=== PATIENT | female | born 1950 | race Caucasian/White ===

== ENCOUNTER 2025-06-27 13:09 | Outpatient (CLI) | payer MEDICARE, SELFPAY | END 2025-06-27 13:10 | disposition home or self-care (01) | LOC: RT 13:14 | PROVIDERS: PCP Nurse Practitioner Family; Visit Provider Nurse Practitioner Family | DX: R06.02 Shortness of breath (principal) | CPT/HCPCS: 94060; 94726; 94729 ==

== ENCOUNTER 2025-08-02 06:40 | Inpatient (IN) | payer MEDICARE, SELFPAY ==
[2025-08-02] VITALS (10 sets, daily range): BP systolic 126–162; BP diastolic 62–102; PULSE 68–105; RESP 16–17; TEMP 36.5–36.8; O2SAT 98–100; BMI 38.4; BMI 40.0
--- NOTE | 2025-08-02 06:49 | XRR_ITS ---
PROCEDURE INFORMATION: Exam: XR Right Knee Exam date and time: 08/02/2025 7:02 AM Age: 75 years old Clinical indication: Injury or trauma; Fall; Blunt trauma; Knee; Right TECHNIQUE: Imaging protocol: Radiologic exam of the right knee. Views: 3 views. COMPARISON: No relevant prior studies available. FINDINGS: Bones/joints: No acute fracture or dislocation. Mild tricompartmental degenerative changes with joint space narrowing. Small joint effusion. Soft tissues: Mild diffuse subcutaneous soft tissue swelling. XR/XR knee RT 3V* [id number] IMPRESSION: 1. No definite acute osseous findings. 2. Small joint effusion. 3. Diffuse soft tissue swelling.
--- NOTE | 2025-08-02 07:00 | USCV_ITS ---
Joan Gold Age: 75 Gender: F : 1950 Exam Date: 08/02/2025 09:00 Ordering Phys: Bentley Wilkes DO Technologist: ANGELIQUE [place] [facility] [place]: venous ulcer HISTORY: Ulcers. PROCEDURES: Venous duplex imaging was performed in bilateral lower extremities. The following venous structures were evaluated: common femoral vein, profunda vein, proximal portion of the greater saphenous vein, superficial femoral vein, and the popliteal vein. In addition, the posterior tibial and peroneal trunk were evaluated. FINDINGS: Normal 2-D Doppler and augmentation and compressibility throughout the lower extremity venous structures. Additional imaging through the proximal calf veins also reveals no thrombus. Limited evaluation of the greater saphenous vein is patent with no thrombus. CONCLUSIONS Technically difficult exam due to pt cooperation and mobility and body habitus No DVT seen. Dr. Zandra Ball DO (Electronically Signed) Final Date: 02 August 2025 10:57 S
--- NOTE | 2025-08-02 07:00 | XRR_ITS ---
PROCEDURE INFORMATION: Exam: XR Right Hip Exam date and time: 08/02/2025 7:21 AM Age: 75 years old Clinical indication: Injury or trauma; Fall; Blunt trauma (contusions or hematomas); Right; Hip TECHNIQUE: Imaging protocol: Radiologic exam of the right hip. Views: 1 view hip with pelvis when performed. COMPARISON: No relevant prior studies available. FINDINGS: Bones/joints: No acute fracture or dislocation. Soft tissues: Unremarkable. XR/XR hip RT 2-3V wo/w pel* [id number] IMPRESSION: No acute osseous findings.
--- NOTE | 2025-08-02 07:03 | XRR_ITS ---
PROCEDURE INFORMATION: Exam: XR Chest Exam date and time: 08/02/2025 7:19 AM Age: 75 years old Clinical indication: Dyspnea; Additional info: Dyspnea/hypoxia TECHNIQUE: Imaging protocol: Radiologic exam of the chest. Views: 1 view. COMPARISON: No relevant prior studies available. FINDINGS: Lungs: Mild central pulmonary vascular congestion without overt edema. No focal consolidation. Pleural spaces: Unremarkable. No pleural effusion. No pneumothorax. Heart/Mediastinum: Heart appears prominent, though accentuated by portable technique. Bones/joints: Unremarkable. XR/XR chest 1V portable [id number] IMPRESSION: Mild central pulmonary vascular congestion without overt edema.
--- NOTE | 2025-08-02 07:03 | ECG_ITS ---
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 Measurements Intervals [place] Rate: 88 P: 85 NM: 181 QRS: 101 QRSD: 139 T: 78 QT: 400 QTc: 486 Interpretive Statements SINUS RHYTHM WITH OCCASIONAL VENTRICULAR PREMATURE COMPLEXES RIGHT AXIS DEVIATION [QRS AXIS > 100] RIGHT BUNDLE BRANCH BLOCK [120+ ms QRS DURATION, UPRIGHT V1, 40+ ms S IN I/aVL/V4/V5/V6] ANTEROSEPTAL MYOCARDIAL INFARCTION , OF INDETERMINATE AGE [40+ ms Q WAVE IN V1-V4] No previous ECG available for comparison Electronically Signed On 08-02-2025 16:48:20 CDT by Shaji Elliott M.D. [id number]
[2025-08-02] MEDS: FUROsemide 10 mg/mL SDV 10mL 60 MG IVP (07:15)
--- NOTE | 2025-08-02 07:26 | W.ED.FALL ---
HPI - Fall General: Chief Complaint: Fall Stated Complaint: FALL- R KNEE PAIN Time Seen by Provider: 08/02/25 06:41 History of Present Illness: 75-year-old female presents emergency room after a fall at home she complaining of her initially right knee pain when I came to see her said she had a right hip pain. Initially according to the note of right knee pain however when I talked to her she says that she has right knee and right hip pain she has fallen 6 times in the last 3 days She has significant amount of swelling in her lower extremities with chronic venous stasis ulcers bilaterally affecting the right leg significantly more than the left there is redness erythema she denies any fever sweats or chills. She has been seeing wound care nurse she has significant amount of redness in her right lower leg which has been worsening. No chest pain or shortness of breath no history of DVT or PE she is not currently on any antibiotics. She does have a cat at home but states the cat has not been biting or scratching her legs. She has not had any orthopnea or PND has significant amount of swelling in her lower extremities some weeping of serous fluid from the wounds. She states the swelling in her legs is chronic. Per EMS she had O2 sat of 68% in the field however here on room air she is at 100% with no respiratory distress with respiratory rate of 16 Associated symptoms-after fall: Denies abdominal pain, chest pain or neck pain Related Data Home Medications ?Medication ?Instructions ?Recorded ?Confirmed cetirizine 10 mg tablet (All Day 10 mg PO DAILY PRN Itching 03/20/25 08/02/25 Allergy (cetirizine)) clonidine HCl 0.2 mg tablet 0.2 mg PO DAILY 03/20/25 08/02/25 epinephrine 0.3 mg/0.3 mL 0.3 mg IM Q10M PRN Allergic 03/20/25 08/02/25 injection, auto-injector Reaction metformin 500 mg tablet 500 mg PO BID 03/20/25 08/02/25 levothyroxine 150 mcg tablet 150 mcg PO DAILY 06/12/25 08/02/25 (Synthroid) clonidine HCl 0.2 mg tablet 0.2 mg PO DAILY 08/02/25 08/02/25 furosemide 40 mg tablet 40 mg PO DAILY 08/02/25 08/02/25 ibuprofen 200 mg tablet (Advil) 200 mg PO Q6H PRN Fever Or Pain 08/02/25 08/02/25 liothyronine 5 mcg tablet 5 mcg PO DAILY 08/02/25 08/02/25 nitrofurantoin 100 mg PO BID 08/02/25 08/02/25 monohydrate/macrocrystals 100 mg capsule spironolactone 25 mg tablet 25 mg PO DAILY 08/02/25 08/02/25 vitamin D3 1,250 mcg (50,000 1 cap PO DAILY 08/02/25 08/02/25 unit)-vitamin K2 200 mcg capsule Previous Rx's ?Medication ?Instructions ?Recorded bupropion HCl 300 mg 24 hr tablet, 300 mg PO QAM #30 tabs 06/12/25 extended release (Wellbutrin XL) risperidone 1 mg tablet 1 mg PO BID #60 tabs 07/24/25 Allergies Allergy/AdvReac Type Severity Reaction Status Date / Time Alpha-Gal Allergy Intermediate ALGY-Hives Verified 06/12/25 15:44 (Dhbyzbqcg-Udttf-2,3-Gala Penicillins Allergy Intermediate ALGY-Hives Verified 06/12/25 15:44 niacin Allergy Unknown Unknown Verified 08/02/25 08:40 clarithromycin Allergy ADR-Vomitin Verified 08/02/25 08:40 g codeine Allergy palpitation Verified 08/02/25 08:40 s escitalopram (From Lexapro) Allergy uticaria Verified 08/02/25 08:40 minocycline Allergy Unknown Verified 08/02/25 08:40 ondansetron (From Zofran) Allergy constipatio Verified 08/02/25 08:40 n simvastatin Allergy palpitation Verified 08/02/25 08:40 s Review of Systems Const: Denies: fever(s) or chills Card: Reports: swelling of feet/ankles and dyspnea on exertion; Denies: chest pain or orthopnea Resp: Denies: dyspnea GI: Denies: abdominal pain : Denies: dysuria, urinary frequency or urinary urgency Musc: Reports: joint pain; Denies: neck pain or back pain Skin/Breast: Reports: erythema, skin tenderness and skin swelling PFSH ED PFSH: Medical History Hypothyroidism DM type 2 (diabetes mellitus, type 2) HTN (hypertension) Psychiatric care Social History Smoking and tobacco/nicotine status: never used tobacco/nicotine Alcohol intake: never Substance/Drug Use: never Household members: other Details: Granddaughter Physical Exam Const: GENERAL APPEARANCE: cooperative ORIENTATION/CONSCIOUSNESS: Yes awake, Yes oriented to person, Yes oriented to place and Yes oriented to time HENMT: COMMON NORMALS: normocephalic, atraumatic and hearing grossly normal bilaterally HEAD & SCALP: normocephalic and atraumatic Resp: COMMON NORMALS: normal respiratory effort, No retractions, No use of accessory muscles and clear to auscultation bilaterally AUSCULTATION: clear to auscultation bilaterally Cardio: COMMON NORMALS: regular rate, regular rhythm and No murmurs present (Cardio) RATE: regular rate RHYTHM: regular rhythm GI: COMMON NORMALS: Soft to palpation and No hepatosplenomegaly present AUSCULTATION: Yes normoactive bowel sounds PALPATION: Yes Soft to palpation, No Tenderness to palpation present (GI), No Guarding due to palpation present (GI) and Yes No hepatosplenomegaly present Extremity: COMMON NORMALS: normal to inspection, capillary refill normal, no clubbing, cyanosis or edema, no calf tenderness and no pedal edema Neuro: SENSORIUM/ORIENTATION: Yes oriented to person, Yes oriented to place and Yes oriented to time Skin: OTHER: Redness induration and erythema of the right lower leg proximal third of the calf extending distally with large open wound with serous drainage on the lateral distal lower leg. Multiple open isolated wounds on the right lower leg with localized erythema. 3+ edema bilaterally of the lower extremities Course Vital Signs: Vital signs: Vital Signs Temperature 98.3 F 08/02/25 06:42 Pulse Rate 82 08/02/25 09:14 Respiratory Rate 16 08/02/25 09:14 Blood Pressure 142/102 08/02/25 09:14 Pulse Oximetry 98 08/02/25 09:14 Oxygen Delivery Me thod Room Air 08/02/25 09:14 MDM - Fall Medical Decision Making Patient initially presents with significant swelling redness tenderness in her lower extremities complaining of right knee and right hip pain. Differential diagnosis includes knee fracture hip fracture DVT cellulitis congestive heart failure. CBC CMP BNP blood cultures lactic acid EKG venous duplex lower extremity chest x-ray ordered for initial evaluation Admitted for mild congestive heart failure with decompensation as well as cellulitis right lower extremity and wound management. Patient will be started on ceftriaxone and vancomycin. She also had a month a cystitis. No previous cultures from wound clinic or previous admission. She is not requiring oxygen at this time. She been given Lasix cultures have been done and initial antibiotics ordered. Discussed with Dr. John. Medical Records I reviewed the patient's medical records. Lab Data I reviewed the patient's lab results. 08/02/25 07:20 08/02/25 07:20 Radiology Impressions Knee X-Ray 08/02/25 06:49 IMPRESSION: 1. No definite acute osseous findings. 2. Small joint effusion. 3. Diffuse soft tissue swelling. Hip/Pelvis X-Ray 08/02/25 07:00 IMPRESSION: No acute osseous findings. Chest X-Ray 08/02/25 07:03 IMPRESSION: Mild central pulmonary vascular congestion without overt edema. Laboratory Results WBC 9.90 10^3/uL (3.29-11.43) 08/02/25 07:20 RBC 4.49 10^6/uL (3.85-5.65) 08/02/25 07:20 Hgb 13.00 g/dL (11.27-16.99) 08/02/25 07:20 Hct 40.1 % (36-47) 08/02/25 07:20 MCV 89.3 fl (85-98) 08/02/25 07:20 MCH 29.0 pg (27-33) 08/02/25 07:20 MCHC 32.4 g/dL (30-55) 08/02/25 07:20 RDW 14.7 % (12.1-15.1) 08/02/25 07:20 Plt Count 323 10^3/cmm (157-399) 08/02/25 07:20 MPV 9.0 fL (7.4-10.4) 08/02/25 07:20 Neut % (Auto) 77.8 % 08/02/25 07:20 Lymph % (Auto) 11.4 % 08/02/25 07:20 Coffey % (Auto) 9.7 % 08/02/25 07:20 Eos % (Auto) 0.0 % 08/02/25 07:20 Baso % (Auto) 0.5 % 08/02/25 07:20 Neut # (Auto) 7.70 10^3/uL (1.8-7.7) 08/02/25 07:20 Lymph # (Auto) 1.1 10^3/uL (0.8-4.8) 08/02/25 07:20 Coffey # (Auto) 1.0 10^3/uL (0.2-0.9) H 08/02/25 07:20 Eos # (Auto) 0.0 10^3/uL (0.0-0.8) 08/02/25 07:20 Baso # (Auto) 0.1 10^3/uL (0.0-0.1) 08/02/25 07:20 Nucleated RBC % (auto) 0 % 08/02/25 07:20 Nucleated RBCs # 0.0 /100WBC 08/02/25 07:20 Sodium 136 mmol/L (136-145) 08/02/25 07:20 Potassium 3.9 mmol/L (3.5-5.1) 08/02/25 07:20 Chloride 100 mmol/L (98-107) 08/02/25 07:20 Carbon Dioxide 22 mmol/L (22-29) 08/02/25 07:20 Anion Gap 17.9 (5-19) 08/02/25 07:20 BUN 13 mg/dL (8-23) 08/02/25 07:20 Creatinine 1.1 mg/dL (0.5-0.9) H 08/02/25 07:20 GFR Calculation Not Reportable 08/02/25 07:20 Glucose 153 mg/dL (65-115) H 08/02/25 07:20 Calculated Osmolality 285 mOsm/kg (285-295) 08/02/25 07:20 Lactic Acid 2.0 mmol/L (0.5-2.2) 08/02/25 07:20 Calcium 8.8 mg/dL (8.5-10.5) 08/02/25 07:20 Total Bilirubin 0.4 mg/dL (0.15-1.2) 08/02/25 07:20 AST 34 U/L (0-32) H 08/02/25 07:20 ALT 30 U/L (0-33) 08/02/25 07:20 Alkaline Phosphatase 81 U/L (35-105) 08/02/25 07:20 NT-Pro-B Natriuret Pep 2061 pg/mL (0-450) H 08/02/25 07:20 Total Protein 7.5 g/dL (6.6-8.7) 08/02/25 07:20 Albumin 3.5 g/dL (3.5-5.2) 08/02/25 07:20 Globulin 4.0 g/dL (1.3-4.6) 08/02/25 07:20 Urine Color Yellow (Yellow) 08/02/25 08:09 Urine Appearance Clear (CLEAR) 08/02/25 08:09 Urine pH 6.0 (5-7) 08/02/25 08:09 Ur Specific [place]ley 1.010 (1.005-1.030) 08/02/25 08:09 Urine Protein Negative (Negative) 08/02/25 08:09 Urine Glucose (UA) Negative (Normal) 08/02/25 08:09 Urine Ketones Negative (Negative) 08/02/25 08:09 Urine Blood Negative (Negative) 08/02/25 08:09 Urine Nitrate Negative (Negative) 08/02/25 08:09 Urine Bilirubin Negative (Negative) 08/02/25 08:09 Urine Urobilinogen 1.0 mg/dL (Negative) 08/02/25 08:09 Ur Leukocyte Esterase 1+ (Negative) A 08/02/25 08:09 Urine RBC 0-2 /hpf (0-2) 08/02/25 08:09 Urine WBC 11-20 /hpf (0-5) H 08/02/25 08:09 Ur Squamous Epith Cells 0-5 /hpf (0-5) 08/02/25 08:09 Amorphous Sediment Not Reportable 08/02/25 08:09 Urine Bacteria 3+ /hpf (NONE) H 08/02/25 08:09 Hyaline Casts 3.71 /lpf 08/02/25 08:09 All radiology interpretation(s) finalized by discharge EKG Data EKG 1: I personally reviewed and interpreted this EKG as follows: EKG interpretation date: 08/02/25 Prior EKG tracings: not available for review Interpretation: EKG 1015 2024 6:46 AM sinus rhythm rate of 88 ID normal 181 QTc 446 right bundle branch block no acute ST elevation. No EKG for comparison. EKG 2: I personally reviewed and interpreted this EKG as follows: EKG interpretation date: 08/02/25 Prior EKG tracings: available for review Interpretation: EKG 08/02/2025 7:52 AM sinus rhythm with occasional PVCs no acute ST changes noted. Right bundle branch block rate of 87 ID 173 QTc 536 compared to EKG done earlier same day no significant change Discharge Plan Discharge Patient Disposition: Placed in Observation Clinical Impression: CHF (congestive heart failure), Falls, Cellulitis, Wound of right lower extremity, Cystitis Coding Level of Care Code ED Laundry Sorter for Henry Valle
[2025-08-02 07:27] LABS: Hematocrit 40.1 % (36-47); Hemoglobin 13.00 g/dL (11.27-16.99); Mean Corpuscular HGB Conc 32.4 g/dL (30-55); Mean Corpuscular Hemoglobin 29.0 pg (27-33); Mean Corpuscular Volume 89.3 fl (85-98); Nucleated Red Blood Cells % 0 %; Platelet Count 323 10^3/cmm (157-399); Red Blood Count 4.49 10^6/uL (3.85-5.65); White Blood Count 9.90 10^3/uL (3.29-11.43)
[2025-08-02 07:46] LABS: Lactic Sepsis W/Reflex 2.0 mmol/L (0.5-2.2)
--- NOTE | 2025-08-02 07:55 | ECG_ITS ---
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 Measurements Intervals [place] Rate: 87 P: 74 OR: 173 QRS: 98 QRSD: 154 T: 65 QT: 443 QTc: 536 Interpretive Statements SINUS RHYTHM WITH OCCASIONAL VENTRICULAR PREMATURE COMPLEXES RIGHT BUNDLE BRANCH BLOCK [120+ ms QRS DURATION, UPRIGHT V1, 40+ ms S IN I/aVL/V4/V5/V6] Compared to ECG 08/02/2025 06:46:01 Right-axis deviation no longer present Myocardial infarct finding no longer present Electronically Signed On 08-02-2025 16:48:14 CDT by Shaji Elliott M.D. [email or web address] [id number]
[2025-08-02 07:56] LABS: Alanine Aminotransferase 30 U/L (0-33); Albumin Level 3.5 g/dL (3.5-5.2); Alkaline Phosphatase 81 U/L (35-105); Anion Gap 17.9 (5-19); Aspartate Amino Transferase 34 U/L (0-32); Blood Urea Nitrogen 13 mg/dL (8-23); Calcium 8.8 mg/dL (8.5-10.5); Carbon Dioxide 22 mmol/L (22-29); Chloride 100 mmol/L (98-107); Creatinine Clr Calc Pharmacy 46.8181; Globulin 4.0 g/dL (1.3-4.6); Glucose 153 mg/dL (65-115); NT Pro B Type Natriuretic Pept 2061 pg/mL (0-450); Osmolality Calculated 285 mOsm/kg (285-295); Potassium 3.9 mmol/L (3.5-5.1); Sodium 136 mmol/L (136-145); Total Protein 7.5 g/dL (6.6-8.7)
[2025-08-02 08:16] LABS: Glucose Urine UA Negative (Normal); Nitrate Urine Negative (Negative); Specific Gravity, Urine 1.010 (1.005-1.030)
[2025-08-02 08:19] LABS: Add Urine Microscopic? YES
--- NOTE | 2025-08-02 10:34 | PM.HP ---
Providers/Chief Complaint Primary Care Provider: KP Alvarado Chief Complaint: FALL- R KNEE PAIN History of Present Illness Joan Gold is a 75 year old woman with a history of chronic right lower extremity wound, lymphedema, hypertension, and type 2 diabetes mellitus presenting with right knee pain and increased frequency of falls (reported six times in five days). Reports chronic bilateral lower extremity swelling with weeping from the chronic right lower leg wound. Describes episodes of sliding off the bed and falling, with resultant hip discomfort; denies chest pain, fever, chills, cough, nausea, vomiting, diarrhea, melena, or hematochezia. Endorses shortness of breath with exertion; sleeps on her side with head elevated. Lives with her granddaughter. Drinks water and soda daily (estimated ~32 ounces water plus additional fluids); previously on diuretics and believes she may still be taking furosemide (Lasix). Elevates legs at night and has an electric recliner; tries to keep legs elevated during the day. ER visit prompted by frequent falls; EMS reportedly measured oxygen saturation ~68%, which was 98% on room air in the ED. Review of Systems Const: Denies: fever(s), chills, body aches or malaise ENMT: Denies: throat pain Card: Reports: edema; Denies: chest pain, pre-syncope or dyspnea on exertion Resp: Denies: dyspnea, productive cough, change in phlegm color or hemoptysis GI: Denies: abdominal pain, nausea, vomiting, diarrhea, constipation, hematochezia or melena : Denies: flank pain, urinary frequency or hematuria Musc: Reports: joint pain (R knee, R shoulder after falls) and other; Denies: back pain, joint swelling or joint redness Skin/Breast: Denies: rash or new lesions Neuro: Denies: headache(s) or confusion Medications/Allergies Home Medications ?Medication ?Instructions ?Recorded ?Confirmed ?Last Taken ?Type cetirizine 10 mg tablet (All Day 10 mg PO DAILY PRN Itching 03/20/25 08/02/25 08/01/25 History Allergy (cetirizine)) clonidine HCl 0.2 mg tablet 0.2 mg PO DAILY 03/20/25 08/02/25 08/01/25 History epinephrine 0.3 mg/0.3 mL 0.3 mg IM Q10M PRN Allergic 03/20/25 08/02/25 Unknown History injection, auto-injector Reaction metformin 500 mg tablet 500 mg PO BID 03/20/25 08/02/25 08/01/25 History bupropion HCl 300 mg 24 hr tablet, 300 mg PO QAM #30 tabs 06/12/25 08/02/25 08/01/25 Rx extended release (Wellbutrin XL) levothyroxine 150 mcg tablet 150 mcg PO DAILY 06/12/25 08/02/25 08/01/25 History (Synthroid) risperidone 1 mg tablet 1 mg PO BID #60 tabs 07/24/25 08/02/25 08/01/25 Rx clonidine HCl 0.2 mg tablet 0.2 mg PO DAILY 08/02/25 08/02/25 08/01/25 History furosemide 40 mg tablet 40 mg PO DAILY 08/02/25 08/02/25 08/01/25 History ibuprofen 200 mg tablet (Advil) 200 mg PO Q6H PRN Fever Or Pain 08/02/25 08/02/25 08/01/25 History liothyronine 5 mcg tablet 5 mcg PO DAILY 08/02/25 08/02/25 08/01/25 History nitrofurantoin 100 mg PO BID 08/02/25 08/02/25 08/01/25 History monohydrate/macrocrystals 100 mg capsule spironolactone 25 mg tablet 25 mg PO DAILY 08/02/25 08/02/25 08/01/25 History vitamin D3 1,250 mcg (50,000 1 cap PO DAILY 08/02/25 08/02/25 08/01/25 History unit)-vitamin K2 200 mcg capsule Allergies Allergy/AdvReac Type Severity Reaction Status Date / Time Alpha-Gal Allergy Intermediate ALGY-Hives Verified 06/12/25 15:44 (Svbickslo-Prqbx-4,3-Gala Penicillins Allergy Intermediate ALGY-Hives Verified 06/12/25 15:44 niacin Allergy Unknown Unknown Verified 08/02/25 08:40 clarithromycin Allergy ADR-Vomitin Verified 08/02/25 08:40 g codeine Allergy palpitation Verified 08/02/25 08:40 s escitalopram (From Lexapro) Allergy uticaria Verified 08/02/25 08:40 minocycline Allergy Unknown Verified 08/02/25 08:40 ondansetron (From Zofran) Allergy constipatio Verified 08/02/25 08:40 n simvastatin Allergy palpitation Verified 08/02/25 08:40 s PFSH Acute PFSH: Medical History Hypothyroidism DM type 2 (diabetes mellitus, type 2) HTN (hypertension) Psychiatric care Social History Smoking and tobacco/nicotine status: never used tobacco/nicotine Alcohol intake: never Substance/Drug Use: never Household members: other Details: Granddaughter Vitals/I&O/Wt Last Vital Signs Temp 98.3 F 08/02/25 06:42 Pulse 82 08/02/25 09:14 Resp 16 08/02/25 09:14 BP 142/102 08/02/25 09:14 Pulse Ox 98 08/02/25 09:14 O2 Del Method Room Air 08/02/25 09:14 Weight last 48 hrs Weight 95.254 kg Physical Exam Const: COMMON NORMALS: patient oriented x3 and alert GENERAL APPEARANCE: cooperative ORIENTATION/CONSCIOUSNESS: Yes awake HENMT: COMMON NORMALS: oropharynx normal Neck/C-Spine: COMMON NORMALS: no JVD Resp: COMMON NORMALS: normal respiratory effort and clear to auscultation bilaterally AUSCULTATION: clear to auscultation bilaterally Cardio: COMMON NORMALS: no JVD, regular rhythm, S1 normal heart sound present, S2 normal heart sound present and No murmurs present (Cardio) RHYTHM: regular rhythm HEART SOUNDS: S1 normal heart sound present and S2 normal heart sound present GI: COMMON NORMALS: Normal to inspection, nondistended, normoactive bowel sounds present, Soft to palpation and non-tender PALPATION: Yes Soft to palpation Extremity: GENERAL: Yes edema (3+, weeping) Neuro: COMMON NORMALS: patient oriented x3 and moves all extremities SENSORIUM/ORIENTATION: Yes alert Skin: NARRATIVE SKIN EXAM: Bilateral significant lower extremity edema, weeping, and number of smaller weeping ulcerations on anterior and lateral lower legs bilaterally. Larger wound of about 4 cm in diameter -a shallow ulceration without tunneling or undermining with weeping with larger inferior area of ecchymosis. Small amount of slough at the base of the shallow ulcer. Large area of erythema and induration of right lower extremity below the knee and extending to the dorsal right foot. Data 08/02/25 07:20 08/02/25 07:20 Micro: Microbiology 08/02/25 07:38 Blood Culture - Preliminary Blood SPECIMEN COLLECTED A&P Assessment and plan 1. CHF (congestive heart failure): Acute congestive heart failure, type unknown: Fluid overload with bilateral leg swelling and weeping; shortness of breath on exertion; chest radiograph shows mild pulmonary vascular congestion without overt edema; NT-proBNP 2060. No chest pain reported. Reviewed vitals, CBC, chemistry, NT proBNP, UA, chest x-ray, ED provider note, discussed with the provider. - Administered IV Lasix (furosemide) 60 mg in ED - Continue IV diuretics (Lasix), Monitor intake/output and electrolytes (risk of electrolyte abnormalities) - Advise reducing fluid intake (drink to thirst, avoid habitual extra fluids) - Order echocardiogram (ultrasound of the heart) to assess cardiac function Significant edema bilaterally. Some purplish discoloration of toes, worse on the left. Venous duplex has been requested and is being assessed for DVT. Obtain arterial duplex. 2. Cellulitis: Cellulitis of right lower extremity : Skin infection of right lower extremity with significant erythema surrounding a chronic wound in the setting of weeping edema; afebrile; no leukocytosis on complete blood count (CBC). Empiric MRSA coverage. Obtain wound culture. Initially ceftriaxone was ordered in ED, but penicillin allergy, did not receive ceftriaxone. Will request for ciprofloxacin. - Start/continue IV vancomycin - Keep legs elevated - Monitor for acute kidney injury (RITIKA) while on antibiotics/diuretics 3. Falls: Reported six falls in five days, including sliding off bed; hip pain noted after falls. - Hip/pelvis x-ray reviewed: no acute osseous findings - Encourage gradual activity and walking as tolerated - PT eval 4. Wound of right lower extremity: Chronic large wound on the posterolateral right lower leg with persistent weeping; follows with wound care. - Surgery consult requested to evaluate for possible debridement - Keep legs elevated 5. Cystitis: Empiric antibiotic coverage for possible UTI. Follow-up urine culture. Plan: Right knee pain : Initial complaint to ED; knee x-ray without definite acute osseous findings, small joint effusion, diffuse soft tissue swelling. - Knee x-ray obtained and reviewed (no acute osseous findings) Lymphedema : Chronic bilateral lower extremity swelling; contributes to weeping wound environment. - Advise leg elevation during the day and night - Diuretic therapy as above Type 2 diabetes mellitus : Known type 2 diabetes mellitus; patient believes sugars improved but confirms ongoing diabetes. Elevated glucose 153 on comprehensive metabolic panel (CMP) reviewed. - Advise monitoring and controlling blood sugars Hypertension : Known history of hypertension. Abnormal urinalysis : Urinalysis: 1+ leukocyte esterase, 11?20 WBCs, 3+ bacteria, hyaline casts noted; nitrite negative. Recent course of nitrofurantoin. Right bundle branch block : Electrocardiogram (EKG) shows right bundle branch block (RBBB) per initial interpretation (official read pending) on my interpretation, pending official read. Obtain TTE as above. Pulmonary vascular congestion on chest radiograph : Chest x-ray shows mild pulmonary vascular congestion without overt edema. - Manage with diuretics as above Elevated NT-proBNP : NT-proBNP 2061, consistent with volume overload/heart failure context. - Manage with diuretics and cardiac evaluation as above Advance care planning : Discussed code status; patient is agreeable to full resuscitative efforts (CPR, defibrillation, intubation) if needed. Identified daughter (and three children) as surrogate decision-makers if capacity changes. - Document full code status - Record daughter/children as surrogate contacts Surgical consultation : Emergency department requested surgical evaluation for possible debridement of chronic right lower leg wound. - Consult surgery for wound evaluation and potential debridement Alpha gal allergy. Follow-up : Admission/observation requested for acute congestive heart failure and right lower extremity cellulitis. - Admit to hospital/observation for management of acute CHF and cellulitis - Order bilateral leg ultrasound to assess for deep vein thrombosis (DVT) - Request arterial circulation studies of lower extremities PDMP PDMP Reviewed: Not Reviewed Attestations Medical Necessity Statement*: Place in observation for additional assessment management of acute CHF, cellulitis and wound of right lower extremity, cystitis, multiple falls recently and lady with underlying diabetes, additional comorbidities as above. and High MDM includes amount and/or complexity of data reviewed/ordered [ previous or external records, resulted lab(s)/test(s), ordered lab(s)/test(s), independent test interpretation and other healthcare professional discussion] and described risk of complication, morbidity or mortality of management as documented Diagnoses CHF (congestive heart failure) I50.9 Cellulitis L03.90 Falls R29.6 Wound of right lower extremity S81.801A Cystitis N30.90
[2025-08-02] MEDS: cefTRIAXone 2,000 mg SDV 2000 MG IVP (11:09)
--- NOTE | 2025-08-02 11:37 | XRR_ITS ---
PROCEDURE INFORMATION: Exam: XR Right Shoulder Exam date and time: 08/02/2025 11:49 AM Age: 75 years old Clinical indication: Injury or trauma; Fall; Blunt trauma (contusions or hematomas); Shoulder; Right; Additional info: Fall, pain TECHNIQUE: Imaging protocol: Radiologic exam of the right shoulder. Views: 2 or more views. COMPARISON: CR XR chest 1V portable [id number] 08/02/2025 7:19 AM FINDINGS: Bones/joints: Demineralization consistent with the patient's age. Aasl-kt-pejgyily degenerative changes glenohumeral joint with spurring of the glenoid. Moderate degenerative changes right AC joint. Some irregularity and sclerosis of the greater tuberosity consistent with degenerative changes. No acute appearing bony abnormality demonstrated. Soft tissues: Normal. XR/XR shoulder RT min 2V* [id number] IMPRESSION: Demineralization consistent with the patient's age. Degenerative changes..
--- NOTE | 2025-08-02 11:37 | USCV_ITS ---
Joan Gold Age: 75 Gender: F : 1950 Exam Date: 08/02/2025 14:38 Ordering Phys: Jason John MD Technologist: [place] [facility] [place]: SOB PEDAL EDEMA BP: 135 / 74 HR: 89 Rhythm: Sinus Technical Quality: MEASUREMENTS (Male / Female) Normal Values 2D ECHO LV Diastolic Diameter PLAX 4.4 cm 4.2 - 5.9 / 3.9 - 5.3 cm IVS Diastolic Thickness 1.2 cm 0.6 - 1.0 / 0.6 - 0.9 cm IVS Systolic Thickness 1.7 cm LVPW Diastolic Thickness 1.2 cm 0.6 - 1.0 / 0.6 - 0.9 cm LVPW Systolic Thickness 1.6 cm LVOT Diameter 2.1 cm LV Ejection Fraction 2D Teich 68.6 % LV Ejection Fraction MOD 4C 53.1 % LV Ejection Fraction MOD 2C 68.5 % LV Ejection Fraction 2C AL 68.7 % LA Diameter 2.6 cm RA Systolic Volume 4C AL 52.0 ml RA Systolic Volume 4C MOD 47.4 ml Aorta at Sinotubular Diameter 2.6 cm IVC Diameter 1.5 cm DOPPLER AV Peak Velocity 144.3 cm/s LVOT Peak Velocity 103.0 cm/s AV Area Cont Eq vti 3.3 cm squared AV Area Cont Eq pk 2.5 cm squared MV Peak Velocity 168.0 cm/s MV Area PHT 4.4 cm squared Mitral E to A Ratio 0.8 TV Peak Velocity 145.5 cm/s TR Peak Velocity 166.0 cm/s TR Peak Gradient 11.0 mmHg TV Peak E Velocity 61.0 cm/s PV Peak Velocity 104.0 cm/s FINDINGS Left Ventricle Normal left ventricular size and systolic function, EF 60-65%. No regional wall motion abnormalities. Grade 1 diastolic dysfunction. Right Ventricle Normal right ventricular size and systolic function. Right Atrium Normal right atrial size. Left Atrium Normal left atrial size. IA Septum Grossly normal Mitral Valve Structurally normal mitral valve. Trace mitral regurgitation. Aortic Valve Aortic valve is thickened. No significant stenosis. Tricuspid Valve Insufficient TR jet to calculate RVSP Pulmonic Valve Not well visualized Pericardium Normal Aorta Normal IVC Appears to be normal CONCLUSIONS LV systolic function is normal with EF of 60-65% Grade 1 diastolic dysfunction Trace mitral regurgitation No comparison studies are available. Shaji Elliott MD (Electronically Signed) Final Date: 04 August 2025 16:40 S
--- NOTE | 2025-08-02 11:37 | USR_ITS ---
PROCEDURE INFORMATION: Exam: US Duplex Right Lower Extremity Arteries Or Arterial Bypass Grafts Exam date and time: 08/02/2025 2:55 PM Age: 75 years old Clinical indication: Pain; Leg, lower; Right; Additional info: Assess arterial circulation TECHNIQUE: Imaging protocol: Right Real-time duplex scan of the arteries or arterial bypass grafts of the right lower extremity with 2-D richter scale, color Doppler flow and spectral waveform analysis. Images documented and saved. COMPARISON: [place] [id number] 08/02/2025 9:00 AM FINDINGS: Right common femoral artery: Plaque present Monophasic waveform. No occlusion or high-grade stenosis. Right superficial femoral artery: Plaque present. Monophasic waveform. No occlusion or high-grade stenosis. Normal waveform. Right popliteal artery: Plaque present. Monophasic waveform. No occlusion or high-grade stenosis. Right calf/foot arteries: Posterior tibial artery shows monophasic waveform and spectral broadening. No occlusion or high-grade stenosis. Dorsalis pedis artery shows monophasic waveform and spectral broadening. No occlusion or high-grade stenosis.. Soft tissues: No hematoma [place] collection. US/[place] [id number] IMPRESSION: No high-grade stenosis or occlusion.
--- NOTE | 2025-08-02 11:42 | PHA.VACGOAL ---
Vancomycin Goal - Goal Vancomycin Goal:: 10-15 mg/L Vancomycin Indication:: SSTI - Therapy Current therapy:: Other Antibiotic (CIPROFLOXACIN) Day of therpy:: Day []of [] . Actual body weight (kg): 210 lb - Data Labs: WBC 9.90 10^3/uL (3.29-11.43) 08/02/25 07:20 RBC 4.49 10^6/uL (3.85-5.65) 08/02/25 07:20 Hgb 13.00 g/dL (11.27-16.99) 08/02/25 07:20 Hct 40.1 % (36-47) 08/02/25 07:20 MCV 89.3 fl (85-98) 08/02/25 07:20 MCH 29.0 pg (27-33) 08/02/25 07:20 MCHC 32.4 g/dL (30-55) 08/02/25 07:20 RDW 14.7 % (12.1-15.1) 08/02/25 07:20 Sodium 136 mmol/L (136-145) 08/02/25 07:20 Potassium 3.9 mmol/L (3.5-5.1) 08/02/25 07:20 Chloride 100 mmol/L (98-107) 08/02/25 07:20 Carbon Dioxide 22 mmol/L (22-29) 08/02/25 07:20 Anion Gap 17.9 (5-19) 08/02/25 07:20 BUN 13 mg/dL (8-23) 08/02/25 07:20 Creatinine 1.1 mg/dL (0.5-0.9) H 08/02/25 07:20 GFR Calculation Not Reportable 08/02/25 07:20 Last dialysis session:: N/A Treatment plan:: new consult Regimen:: INITIAL LOADING DOSE OF 1000 MG X 1 GIVEN IN ER MAINTENANCE DOSE OF 750 MG Q12H PER DOSING PROTOCOL Follow up:: WILL CONTINUE TO MONITOR AND FOLLOW UP DAILY
--- NOTE | 2025-08-02 13:49 | PM.CONSULT ---
Providers/Reason For Consult Consulting Physician/Specialty*: general surgery Reason for Consult*: bilateral lower extremity ulcerations. Attending Physician: Jason John Primary Care Provider: KP Alvarado History of Present Illness History of Present Illness Joan Gold is a 75 year old female who was admitted to the hospital with heart failure, she has lymphedema bilateral lower extremity chronic venous stasis and ulcerations, I was consulted for evaluation for possible debridement of bilateral lower extremity ulcerations due to superimposed cellulitis. Patient states that she has had these wounds for years, she receives treatment in the wound care clinic by Dr. Mora. Endorses minimal supervision, she does wrap her legs on a daily basis to prevent edema. Review of Systems General: Reports: 10 or more systems reviewed and unremarkable except in HPI and below Medications/Allergies Home Medications ?Medication ?Instructions ?Recorded ?Confirmed ?Last Taken ?Type cetirizine 10 mg tablet (All Day 10 mg PO DAILY PRN Itching 03/20/25 08/02/25 08/01/25 History Allergy (cetirizine)) clonidine HCl 0.2 mg tablet 0.2 mg PO DAILY 03/20/25 08/02/25 08/01/25 History epinephrine 0.3 mg/0.3 mL 0.3 mg IM Q10M PRN Allergic 03/20/25 08/02/25 Unknown History injection, auto-injector Reaction metformin 500 mg tablet 500 mg PO BID 03/20/25 08/02/25 08/01/25 History bupropion HCl 300 mg 24 hr tablet, 300 mg PO QAM #30 tabs 06/12/25 08/02/25 08/01/25 Rx extended release (Wellbutrin XL) levothyroxine 150 mcg tablet 150 mcg PO DAILY 06/12/25 08/02/25 08/01/25 History (Synthroid) risperidone 1 mg tablet 1 mg PO BID #60 tabs 07/24/25 08/02/25 08/01/25 Rx clonidine HCl 0.2 mg tablet 0.2 mg PO DAILY 08/02/25 08/02/25 08/01/25 History furosemide 40 mg tablet 40 mg PO DAILY 08/02/25 08/02/25 08/01/25 History ibuprofen 200 mg tablet (Advil) 200 mg PO Q6H PRN Fever Or Pain 08/02/25 08/02/25 08/01/25 History liothyronine 5 mcg tablet 5 mcg PO DAILY 08/02/25 08/02/25 08/01/25 History nitrofurantoin 100 mg PO BID 08/02/25 08/02/25 08/01/25 History monohydrate/macrocrystals 100 mg capsule spironolactone 25 mg tablet 25 mg PO DAILY 08/02/25 08/02/25 08/01/25 History vitamin D3 1,250 mcg (50,000 1 cap PO DAILY 08/02/25 08/02/25 08/01/25 History unit)-vitamin K2 200 mcg capsule Allergies Allergy/AdvReac Type Severity Reaction Status Date / Time Alpha-Gal Allergy Intermediate ALGY-Hives Verified 06/12/25 15:44 (Zlhbxzcps-Mbcwr-4,3-Gala Penicillins Allergy Intermediate ALGY-Hives Verified 06/12/25 15:44 niacin Allergy Unknown Unknown Verified 08/02/25 08:40 clarithromycin Allergy ADR-Vomitin Verified 08/02/25 08:40 g codeine Allergy palpitation Verified 08/02/25 08:40 s escitalopram (From Lexapro) Allergy uticaria Verified 08/02/25 08:40 minocycline Allergy Unknown Verified 08/02/25 08:40 ondansetron (From Zofran) Allergy constipatio Verified 08/02/25 08:40 n simvastatin Allergy palpitation Verified 08/02/25 08:40 s Current Medications Generic Name Dose Route Start Last Admin Trade Name Freq PRN Reason Stop Dose Admin Fondaparinux 2.5 mg 08/02/25 11:37 08/02/25 13:13 Fondaparinux 2.5 Mg/0.5 Ml Syringe SUBCUT 2.5 mg DAILY MAYURI Administration Ciprofloxacin/Dextrose 400 mg in 200 mls @ 200 mls/hr 08/02/25 11:37 08/02/25 13:10 Cipro IV 200 mls/hr Q12H MAYURI Administration Protocol PFSH Acute PFSH: Medical History (Updated 08/02/25 @ 11:07 by Bentley Wilkes DO) Hypothyroidism DM type 2 (diabetes mellitus, type 2) HTN (hypertension) Psychiatric care Social History Smoking and tobacco/nicotine status: never used tobacco/nicotine Alcohol intake: never Substance/Drug Use: never Household members: other Details: Granddaughter Vitals/I&O/Wt Last Vital Signs Temp 98.2 F 08/02/25 13:40 Pulse 68 08/02/25 13:40 Resp 16 08/02/25 13:40 BP 141/98 08/02/25 13:40 Pulse Ox 98 08/02/25 13:40 O2 Del Method Room Air 08/02/25 13:19 Weight last 48 hrs Weight 210 lb Physical Exam Narrative: Bilateral lower extremity edema is noted. In the left lower extremity at the level of the anterior leg there is multiple small ulcerations with fibrinous material at the base. Minimal surrounding erythema. On the right lower extremity there is a very large superficial ulceration covering almost 2/3 of the anterior portion of the leg, does have some surrounding erythema. Urinary Catheter Management: Weber: Cath Placed During This Visit: yes Urinary Catheter Date of Insertion: 08/02/25 Urinary Catheter Time of Insertion: 13:28 Data 08/02/25 07:20 08/02/25 07:20 Micro: Microbiology 08/02/25 10:19 Blood Culture - Preliminary Blood SPECIMEN COLLECTED 08/02/25 07:38 Blood Culture - Preliminary Blood SPECIMEN COLLECTED A&P Assessment and plan 1. Cellulitis: 2. Wound of right lower extremity: Plan: After complete history physical examination and review of all available clinical data I have decided to offer the patient short debridement of her wounds in the operating room. I think this will help with the wounds heal faster and after debridement she can continue following up with wound care as outpatient for additional care and sequential debridements. Patient shows understanding agrees with the plan. We did discuss the risks of bleeding infection need for additional procedures, poor wound healing, new opening chronic wounds. She shows understanding. She will be keep n.p.o. after midnight we will plan to proceed to the OR tomorrow around noon PDMP PDMP Reviewed: Not Reviewed Coding Level of Care Code Acute Code for Chg Fwd Diagnoses Cellulitis L03.90 Wound of right lower extremity S81.801A
--- NOTE | 2025-08-02 18:30 | PC.NURSE ---
Order from Dr. John to order tramadol 50 mg Q6Hr PRN
[2025-08-03] VITALS (19 sets, daily range): BP systolic 116–149; BP diastolic 61–100; PULSE 72–106; RESP 14–18; TEMP 36.2–37.1; O2SAT 93–100
[2025-08-03 05:29] LABS: Magnesium 1.8 mg/dL (1.7-2.3)
[2025-08-03] MEDS: FUROsemide 10 mg/mL SDV 4mL 40 MG IVP ×2 (05:36→16:10)
[2025-08-03 08:02] LABS: Hematocrit 32.0 % (36-47); Hemoglobin 10.60 g/dL (11.27-16.99); Mean Corpuscular HGB Conc 33.1 g/dL (30-55); Mean Corpuscular Hemoglobin 29.8 pg (27-33); Mean Corpuscular Volume 89.9 fl (85-98); Nucleated Red Blood Cells % 0 %; Platelet Count 334 10^3/cmm (157-399); Red Blood Count 3.56 10^6/uL (3.85-5.65); White Blood Count 8.62 10^3/uL (3.29-11.43)
[2025-08-03 08:17] LABS: Alanine Aminotransferase 22 U/L (0-33); Albumin Level 2.9 g/dL (3.5-5.2); Alkaline Phosphatase 57 U/L (35-105); Anion Gap 16.3 (5-19); Aspartate Amino Transferase 37 U/L (0-32); Blood Urea Nitrogen 12 mg/dL (8-23); Calcium 7.9 mg/dL (8.5-10.5); Carbon Dioxide 21 mmol/L (22-29); Chloride 101 mmol/L (98-107); Creatinine Clr Calc Pharmacy 47.3557; Globulin 3.4 g/dL (1.3-4.6); Glucose 117 mg/dL (65-115); Osmolality Calculated 281 mOsm/kg (285-295); Potassium 3.3 mmol/L (3.5-5.1); Sodium 135 mmol/L (136-145); Total Protein 6.3 g/dL (6.6-8.7)
--- NOTE | 2025-08-03 08:29 | P.HPUD_ITS ---
Surgery/Procedure H&P Update DATE OF PROCEDURE: August 03, 2025 DATE H&P PERFORMED: 08/02/25 H&P UPDATE INFORMATION: I have reviewed H&P completed within last 30 days, I have examined patient prior to procedure, No changes to prior documentation, H&P is in [facility] EMR on date indicated and Risks and benefits of the procedure reviewed PLANNED PROCEDURE: Operation Date: 08/03/25 13:00 Proposed Procedures p debridement bilateral lower extremities(Bilateral) - [place] Diane MD
--- NOTE | 2025-08-03 08:58 | P.PN_ITS ---
Subjective 2 Subjective: Her lower back was aching somewhat possibly after the recent falls, otherwise she says she is doing all right. She is breathing okay. Denies nausea vomiting or diarrhea. Vitals/I&O/Wt Last Vital Signs Temp 98.0 F 08/03/25 07:26 Pulse 93 08/03/25 07:26 Resp 18 08/03/25 07:26 BP 119/64 08/03/25 07:26 Pulse Ox 94 08/03/25 07:26 O2 Del Method Room Air 08/03/25 07:26 08/02/25 08/03/25 08/03/25 22:59 06:59 14:59 Intake Total 930 / 930 450 / 1380 Output Total 550 / 550 200 / 750 1350 / 1350 Balance 380 / 380 250 / 630 -1350 / -1350 Weight last 48 hrs Weight 97.211 kg Weight 99.337 kg Weight 95.254 kg Physical Exam 2 Const: COMMON NORMALS: patient oriented x3 and alert GENERAL APPEARANCE: c ooperative ORIENTATION/CONSCIOUSNESS: Yes awake HENMT: COMMON NORMALS: oropharynx normal Neck/C-Spine: COMMON NORMALS: no JVD Resp: COMMON NORMALS: normal respiratory effort and clear to auscultation bilaterally AUSCULTATION: clear to auscultation bilaterally Cardio: COMMON NORMALS: no JVD, regular rhythm, S1 normal heart sound present, S2 normal heart sound present and No murmurs present (Cardio) RHYTHM: regular rhythm HEART SOUNDS: S1 normal heart sound present and S2 normal heart sound present GI: COMMON NORMALS: Normal to inspection, nondistended, normoactive bowel sounds present, Soft to palpation and non-tender PALPATION: Yes Soft to palpation Extremity: GENERAL: Yes edema (3+, weeping) Neuro: COMMON NORMALS: patient oriented x3 and moves all extremities S ENSORIUM/ORIENTATION: Yes alert Skin: NARRATIVE SKIN EXAM: Bilateral significant lower extremity edema, weeping, and number of smaller weeping ulcerations on anterior and lateral lower legs bilaterally. Larger wound of about 4 cm in diameter -a shallow ulceration without tunneling or undermining with weeping with larger inferior area of ecchymosis. Small amount of slough at the base of the shallow ulcer. Large area of erythema and induration of right lower extremity below the knee and extending to the dorsal right foot. Urinary Catheter Management: Weber: Cath Placed During This Visit: yes Reason for Continuing Indwelling Catheter: Perioperative Use in Selected Surgeries Urinary Catheter Date of Insertion: 08/02/25 Urinary Catheter Time of Insertion: 13:28 Data 08/03/25 04:49 08/03/25 04:49 Micro: Microbiology 08/02/25 10:19 Blood Culture - Preliminary Blood SPECIMEN COLLECTED 08/02/25 07:38 Blood Culture - Preliminary Blood SPECIMEN COLLECTED A&P Assessment and plan 1. CHF (congestive heart failure): Reviewed vitals, intake and output, noted in negative balance of 720 mL. Noted slight improvement in the edema. Less weeping today. Reviewed chemistry, replace hypokalemia. Reviewed magnesium, will give 1 g magnesium. Recheck chemistry. Recheck magnesium. Acute congestive heart failure, type unknown: Fluid overload with bilateral leg swelling and weeping; shortness of breath on exertion; chest radiograph shows mild pulmonary vascular congestion without overt edema; NT-proBNP 2060. No chest pain reported. Reviewed vitals, CBC, chemistry, NT proBNP, UA, chest x-ray, ED provider note, discussed with the provider. - Administered IV Lasix (furosemide) 60 mg in ED - Continue IV diuretics (Lasix), Monitor intake/output and electrolytes (risk of electrolyte abnormalities) - Advise reducing fluid intake (drink to thirst, avoid habitual extra fluids) - Follow-up echocardiogram (ultrasound of the heart) to assess cardiac function Significant edema bilaterally. Some purplish discoloration of toes, worse on the left. Venous duplex without DVT although technically difficult study. Arterial duplex reviewed as well, no high-grade stenosis or occlusion. 2. Cellulitis: Large area of cellulitis of right lower extremity : Skin infection of right lower extremity with significant erythema surrounding a chronic wound in the setting of weeping edema; afebrile; no leukocytosis on complete blood count (CBC). Blood culture reviewed, so far negative. Empiric MRSA coverage. Obtain wound culture. Initially ceftriaxone was ordered in ED, but penicillin allergy, did not receive ceftriaxone. - continue IV vancomycin, ciprofloxacin. Monitor for risk of C. difficile. -Per discussion with her, she tells me plans are to undergo debridement of the wound of right lateral lower leg. Reviewed surgery note. - Keep legs elevated - Monitor for acute kidney injury (RITIKA) while on antibiotics/diuretics 3. Falls: Reported six falls in five days, including sliding off bed; hip pain noted after falls. - Hip/pelvis x-ray reviewed: no acute osseous findings - Encourage gradual activity and walking as tolerated - PT eval 4. Wound of right lower extremity: Chronic large wound on the posterolateral right lower leg with persistent weeping; follows with wound care. - Surgery consult requested to evaluate for possible debridement - Keep legs elevated 5. Cystitis: Reviewed urine culture, so far pending. Empiric antibiotic coverage for possible UTI. Follow-up urine culture. Plan: Right knee pain : Initial complaint to ED; knee x-ray without definite acute osseous findings, small joint effusion, diffuse soft tissue swelling. - Knee x-ray obtained and reviewed (no acute osseous findings) Lymphedema : Chronic bilateral lower extremity swelling; contributes to weeping wound environment. - Advise leg elevation during the day and night - Diuretic therapy as above Type 2 diabetes mellitus : Known type 2 diabetes mellitus; patient believes sugars improved but confirms ongoing diabetes. Continue to monitor POC glucose. Add SSI. Hypertension : Known history of hypertension. Abnormal urinalysis : Urinalysis: 1+ leukocyte esterase, 11?20 WBCs, 3+ bacteria, hyaline casts noted; nitrite negative. Recent course of nitrofurantoin. Right bundle branch block : Electrocardiogram (EKG) shows right bundle branch block (RBBB) per initial interpretation (official read pending) on my interpretation, pending official read. Pending TTE as above. Pulmonary vascular congestion on chest radiograph : Chest x-ray shows mild pulmonary vascular congestion without overt edema. - Manage with diuretics as above Elevated NT-proBNP : NT-proBNP 2061, consistent with volume overload/heart failure context. - Manage with diuretics and cardiac evaluation as above Advance care planning : Discussed code status; patient is agreeable to full resuscitative efforts (CPR, defibrillation, intubation) if needed. Identified daughter (and three children) as surrogate decision-makers if capacity changes. - Document full code status - Record daughter/children as surrogate contacts Surgical consultation : Emergency department requested surgical evaluation for possible debridement of chronic right lower leg wound. - Consult surgery for wound evaluation and potential debridement Alpha gal allergy. Follow-up : Admission/observation requested for acute congestive heart failure and right lower extremity cellulitis. - Admit to hospital/observation for management of acute CHF and cellulitis - Order bilateral leg ultrasound to assess for deep vein thrombosis (DVT) - Request arterial circulation studies of lower extremities PDMP PDMP Reviewed: Not Reviewed Attestations 2 Medical Necessity Statement*: Requires continued hospitalization for assessment and management of extensive cellulitis of right lower extremity, acute CHF. Diagnoses CHF (congestive heart failure) I50.9 Cellulitis L03.90 Falls R29.6 Wound of right lower extremity S81.801A Cystitis N30.90
[2025-08-03] MEDS: magnesium sulfate premix 1 GM/100 ML PIGGYBACK IV (09:03)
[2025-08-03] MEDS: lidocaine 1% 5 ML in potassium chloride premix 100 ML 52.5 ML IV (09:46)
--- NOTE | 2025-08-03 10:55 | ANES.PREANE2 ---
Pre-Anesthetic Assessment Height/Weight: Height 1.57 m Weight 97.211 kg Temp Pulse Resp BP Pulse Ox O2 Del Method 98.0 F 93 18 119/64 94 Room Air 08/03/25 07:26 08/03/25 07:26 08/03/25 07:26 08/03/25 07:26 08/03/25 07:26 08/03/25 07:26 Operation Date: 08/03/25 13:00 Proposed Procedures p debridement bilateral lower extremities(Bilateral) - Los Diane MD Familial anesthetic complications: ALPHA GAL Allergy Was Beta Maddison taken within 24 hours: N/A Was Clonidine taken within 24 hours: N/A Last intake: > 8hrs Social No alcohol and No tobacco Exam alert, oriented x 3, clear to auscultation bilaterally and regular rate & rhythm Airway Mallampati: Class II Dentition: false CV/HEM Congestive Heart Failure Metabolic Diabetes Mellitus, Morbid Obesity and Thyroid Disease Anesthetic Plan ASA status: 4 Anesthesia: General Risk of > 500 ml blood loss (7ml/kg in children): No Medications/Allergies Home Medications ?Medication ?Instructions ?Recorded ?Confirmed ?Last Taken ?Type cetirizine 10 mg tablet (All Day 10 mg PO DAILY PRN Itching 03/20/25 08/02/25 08/01/25 History Allergy (cetirizine)) clonidine HCl 0.2 mg tablet 0.2 mg PO DAILY 03/20/25 08/02/25 08/01/25 History epinephrine 0.3 mg/0.3 mL 0.3 mg IM Q10M PRN Allergic 03/20/25 08/02/25 Unknown History injection, auto-injector Reaction metformin 500 mg tablet 500 mg PO BID 03/20/25 08/02/25 08/01/25 History bupropion HCl 300 mg 24 hr tablet, 300 mg PO QAM #30 tabs 06/12/25 08/02/25 08/01/25 Rx extended release (Wellbutrin XL) levothyroxine 150 mcg tablet 150 mcg PO DAILY 06/12/25 08/02/25 08/01/25 History (Synthroid) risperidone 1 mg tablet 1 mg PO BID #60 tabs 07/24/25 08/02/25 08/01/25 Rx clonidine HCl 0.2 mg tablet 0.2 mg PO DAILY 08/02/25 08/02/2508/01/25 History furosemide 40 mg tablet 40 mg PO DAILY 08/02/25 08/02/25 08/01/25 History ibuprofen 200 mg tablet (Advil) 200 mg PO Q6H PRN Fever Or Pain 08/02/25 08/02/25 08/01/25 History liothyronine 5 mcg tablet 5 mcg PO DAILY 08/02/25 08/02/25 08/01/25 History nitrofurantoin 100 mg PO BID 08/02/25 08/02/25 08/01/25 History monohydrate/macrocrystals 100 mg capsule spironolactone 25 mg tablet 25 mg PO DAILY 08/02/25 08/02/25 08/01/25 History vitamin D3 1,250 mcg (50,000 1 cap PO DAILY 08/02/25 08/02/25 08/01/25 History unit)-vitamin K2 200 mcg capsule Allergies Allergy/AdvReac Type Severity Reaction Status Date / Time Alpha-Gal Allergy Intermediate ALGY-Hives Verified 06/12/25 15:44 (Vuevnpoao-Eftmt-4,3-Gala Penicillins Allergy Intermediate ALGY-Hives Verified 06/12/25 15:44 niacin Allergy Unknown Unknown Verified 08/02/25 08:40 clarithromycin Allergy ADR-Vomitin Verified 08/02/25 08:40 g codeine Allergy palpitation Verified 08/02/25 08:40 s escitalopram (From Lexapro) Allergy uticaria Verified 08/02/25 08:40 minocycline Allergy Unknown Verified 08/02/25 08:40 ondansetron (From Zofran) Allergy constipatio Verified 08/02/25 08:40 n simvastatin Allergy palpitation Verified 08/02/25 08:40 s Current Medications Generic Name Dose Route Start Last Admin Trade Name Freq PRN Reason Stop Dose Admin Bupropion HCl 300 mg 08/03/25 07:55 08/03/25 09:01 Bupropion Xl (24 Hr) 300 Mg Tablet PO 300 mg On Hold: 08/03/25 10:49 QAM [facility] Administration Comment: Order held by Process Transfer Fondaparinux 2.5 mg 08/02/25 11:37 08/03/25 05:38 Fondaparinux 2.5 Mg/0.5 Ml Syringe SUBCUT Not Given On Hold: 08/03/25 10:49 DAILY [facility] Comment: Order held by Process Transfer Furosemide 40 mg 08/03/25 04:00 08/03/25 05:36 Furosemide 10 Mg/Ml Sdv 4ml IVP 40 mg On Hold: 08/03/25 10:49 BID@0400,1600 MAYURI Administration Comment: Order held by Process Transfer Ciprofloxacin/Dextrose 400 mg in 200 mls @ 200 mls/hr 08/02/25 11:37 08/03/25 01:39 Cipro IV Infused Q12H [facility] Infusion Protocol Vancomycin HCl 750 mg/ Sodium 250 mls @ 250 mls/hr 08/02/25 23:00 08/03/25 01:38 Chloride IV Infused Q12H [facility] Infusion Lidocaine HCl 5 ml/ Potassium 105 mls @ 52.5 mls/hr 08/03/25 09:02 08/03/25 09:46 Chloride IV 08/03/25 11:01 52.5 mls/hr ONCE ONE Administration Insulin Human Lispro 0 unit 08/03/25 08:00 08/03/25 09:00 Insulin Lispro 100 Unit/1 Ml SUBCUT 2 unit On Hold: 08/03/25 10:49 WM&BEDTIME [facility] Administration Comment: Order held by Process Protocol Transfer Levothyroxine Sodium 150 mcg 08/03/25 07:55 08/03/25 09:02 Levothyroxine 150 Mcg Tablet PO 150 mcg On Hold: 08/03/25 10:49 DAILY [facility] Administration Comment: Order held by Process Transfer Liothyronine Sodium 5 mcg 08/03/25 07:55 08/03/25 09:02 Liothyronine 5 Mcg Tablet PO 5 mcg On Hold: 08/03/25 10:49 DAILY MAY[facility] Administration Comment: Order held by Process Transfer Nystatin 1 applic 08/02/25 17:00 08/03/25 05:37 Nystatin Cream 30 Gm TOPICAL 1 applic On Hold: 08/03/25 10:49 BID [facility] Administration Comment: Order held by Process Transfer Risperidone 1 mg 08/03/25 07:55 08/03/25 09:02 Risperidone 1 Mg Tablet PO 1 mg On Hold: 08/03/25 10:49 BID [facility] Administration Comment: Order held by Process Transfer Spironolactone 25 mg 08/03/25 07:55 08/03/25 09:02 Spironolactone 25 Mg Tablet PO 25 mg On Hold: 08/03/25 10:49 DAILY MAYURI Administration Comment: Order held by Process Transfer Tramadol HCl 50 mg 08/02/25 18:29 08/02/25 19:49 Tramadol 50 Mg Tablet PO 50 mg On Hold: 08/03/25 10:49 Q6H PRN Administration Comment: Order held by Process MODERATE PAIN Transfer [facility] Anesthesia Medical History (Updated 08/02/25 @ 11:07 by Bentley Wilkes DO) Hypothyroidism DM type 2 (diabetes mellitus, type 2) HTN (hypertension) Psychiatric care Social History Smoking and tobacco/nicotine status: never used tobacco/nicotine Alcohol intake: never Substance/Drug Use: never Household members: other Details: Granddaughter Data Anesthesia 08/03/25 04:49 08/03/25 04:49 Short CBC 08/02/25 08/03/25 Range/Units 07:20 04:49 WBC 9.90 8.62 (3.29-11.43) 10^3/uL Hgb 13.00 10.60 L (11.27-16.99) g/dL Hct 40.1 32.0 L (36-47) % MCV 89.3 89.9 (85-98) fl Plt Count 323 334 (157-399) 10^3/cmm Neut % (Auto) 77.8 76.2 % Neut # (Auto) 7.70 6.57 (1.8-7.7) 10^3/uL BMP 08/02/25 08/03/25 07:20 04:49 Sodium 136 135 L Potassium 3.9 3.3 L Chloride 100 101 Carbon Dioxide 22 21 L BUN 13 12 Creatinine 1.1 H 1.1 H Glucose 153 H 117 H Calcium 8.8 7.9 L Cardiac Enzymes 08/02/25 Range/Units 07:20 NT-Pro-B Natriuret Pep 2061 H (0-450) pg/mL Liver Function 08/02/25 08/03/25 Range/Units 07:20 04:49 Total Bilirubin 0.4 0.6 (0.15-1.2) mg/dL AST 34 H 37 H (0-32) U/L ALT 30 22 (0-33) U/L Alkaline Phosphatase 81 57 (35-105) U/L Albumin 3.5 2.9 L (3.5-5.2) g/dL Urine 08/02/25 Range/Units 08:09 Urine Color Yellow (Yellow) Urine Appearance Clear (CLEAR) Urine pH 6.0 (5-7) Ur Specific [place] 1.010 (1.005-1.030) Urine Protein Negative (Negative) Urine Glucose (UA) Negative (Normal) Urine Ketones Negative (Negative) Urine Nitrate Negative (Negative) Urine Bilirubin Negative (Negative) Ur Leukocyte Esterase 1+ A (Negative) Urine RBC 0-2 (0-2) /hpf Urine WBC 11-20 H (0-5) /hpf Microbiology 08/02/25 07:38 Blood Culture - Preliminary Blood NEGATIVE TO DATE 08/02/25 10:19 Blood Culture - Preliminary Blood SPECIMEN COLLECTED
--- NOTE | 2025-08-03 11:21 | PC.NURSE ---
patient to surgery at 1050
--- NOTE | 2025-08-03 12:31 | P.OP_ITS ---
Operative Report Date of procedure: August 03, 2025 Pre-op diagnosis: Bilateral lower extremity venous ulcers Post-op diagnosis: Same Post-op findings: On the left lower extremity there were 6 wounds and anterior aspect of the leg, 3 of them measuring 1 x 1 cm, 1 measuring 1 x 2 cm and 1 measuring 2 x 1.5 cm all of them covered with the superficial scar. On the right leg there was 2 large wounds 1 measuring 8 x 3 cm other 15 x 11 cm, both of the wounds are superficial to the level of the deep dermis and superficial subcutaneous tissue. Procedure done: Sharp debridement and washout of bilateral lower extremity wounds to the level of the subcutaneous tissue. On the right lower extremity debridement area was a by 3 cm and 15 x 11 cm in the left lower extremity debridement area was 1 x 1 cm, 1 x 1 cm, 1 x 1 cm, 2 x 1 cm and 2 x 1.5 cm Specimens removed/disposition: wound cultures from left lower extremity Surgeon: Los Diane MD Purchasing Specialist: RADHA OR Staff Estimated blood loss: 5cc Complications: none Brief History: 75-year-old female with multiple bilateral lower extremity ulcerations from chronic venous stasis. She is admitted currently with cellulitis. I was requested to evaluate for debridement. We decided to proceed to the OR for washout and debridement. Procedure: Patient was brought into the OR, general esthesia was given. Bilateral lower extremities were prepped and draped in the usual sterile fashion. A timeout was conducted. I started the intervention in the left lower extremity, there were several small wounds in the anterior aspect of the leg covered with eschar, with careful sharp dissection I was able to remove the scar of each one of the ulcerations, cultures were taken from the area of the ulcerations. I then proceeded to irrigate the wounds. Once the wounds were irrigated I then used curette to remove all the vitalized subcutaneous tissue until healthy bleeding tissue was noted behind. The debridement level was to the level of the subcutaneous tissue. The wound measuring 1 x 1 cm, 1 x 1 cm, 1 x 1 cm, 2 x 1 cm, 2 x 1.5 cm. On the right lower extremity there were 2 separate wounds to the level of the deep dermis and subcutaneous tissue noted to Fibrinous Material and Slough at the Base. I Proceeded to Wash This Wounds and after They Were Clear I Debrided with a Sharp Curette to the Level of the Subcutaneous Tissue, the Measurement of the Wounds Were 8 x 3 Cm and 15 x 11 Cm. The Wounds Were Washed out with Large Amount of Saline. Hemostasis Was Achieved with Electrocautery. The Wounds Were Then Dressed with Xeroform on the Base, 4 X 4's, ABD Pads and Wrapped with Kerlix and Alfred Bandage. At the End of the Procedure All Counts Were Correct Patient Tolerated Well the Procedure Was Transferred to the PACU in Stable Condition
--- NOTE | 2025-08-03 13:35 | ANE.PACU2 ---
Inpatient post-anesthesia follow up: Airway intact: Yes Vital signs: Temperature 97.2 F Pulse Rate 80 Respiratory Rate 16 Blood Pressure 147/80 Pulse Oximetry 100 Oxygen Delivery Me thod Room Air Oxygen Flow Rate 10 Fraction of Inspir ed Oxygen Hydration adequate: Yes Nausea and vomiting: No Pain level: 1 Mental status: Baseline
[2025-08-04] VITALS (7 sets, daily range): BP systolic 96–161; BP diastolic 51–97; PULSE 65–104; RESP 15–18; TEMP 36.6–37.1; O2SAT 94–98
[2025-08-04] MEDS: FUROsemide 10 mg/mL SDV 4mL 40 MG IVP (04:46)
[2025-08-04 05:08] LABS: Hematocrit 32.2 % (36-47); Hemoglobin 10.40 g/dL (11.27-16.99); Mean Corpuscular HGB Conc 32.3 g/dL (30-55); Mean Corpuscular Hemoglobin 29.1 pg (27-33); Mean Corpuscular Volume 89.9 fl (85-98); Nucleated Red Blood Cells % 0 %; Platelet Count 320 10^3/cmm (157-399); Red Blood Count 3.58 10^6/uL (3.85-5.65); White Blood Count 10.16 10^3/uL (3.29-11.43)
[2025-08-04 05:27] LABS: Alanine Aminotransferase 24 U/L (0-33); Albumin Level 2.9 g/dL (3.5-5.2); Alkaline Phosphatase 58 U/L (35-105); Anion Gap 18.3 (5-19); Aspartate Amino Transferase 56 U/L (0-32); Blood Urea Nitrogen 14 mg/dL (8-23); Calcium 7.9 mg/dL (8.5-10.5); Carbon Dioxide 22 mmol/L (22-29); Chloride 98 mmol/L (98-107); Creatinine Clr Calc Pharmacy 52.0484; Globulin 3.7 g/dL (1.3-4.6); Glucose 108 mg/dL (65-115); Magnesium 1.8 mg/dL (1.7-2.3); Osmolality Calculated 281 mOsm/kg (285-295); Potassium 3.3 mmol/L (3.5-5.1); Sodium 135 mmol/L (136-145); Total Protein 6.6 g/dL (6.6-8.7)
--- NOTE | 2025-08-04 10:48 | PC.SOCIAL ---
*IMM* Patient received copy of Important Message from Medicare. Copy Initialed, dated and placed in patient chart.
--- NOTE | 2025-08-04 16:47 | P.PN_ITS ---
Subjective 2 Subjective: Patient was seen this morning, she tells me that she lives at home with her granddaughter, she plans on going back home with her granddaughter, continues to have lower extremity edema although improving, denies any shortness of breath she tells me that she does not ambulate much at home Vitals/I&O/Wt Last Vital Signs Temp 97.8 F 08/04/25 16:00 Pulse 97 08/04/25 16:00 Resp 18 08/04/25 16:00 BP 139/82 08/04/25 16:00 Pulse Ox 96 08/04/25 16:00 O2 Del Method Room Air 08/04/25 12:14 O2 Flow Rate 10 08/03/25 13:06 08/04/25 08/04/25 08/04/25 06:59 14:59 22:59 Intake Total 810 / 2045 930 / 930 Output Total 650 / 4405 1450 / 1450 Balance 160 / -2360 -520 / -520 Weight last 48 hrs Weight 97.069 kg Weight 97.211 kg Physical Exam 2 Const: COMMON NORMALS: no acute distress and patient oriented x3 Resp: COMMON NORMALS: normal respiratory effort, No retractions, No use of accessory muscles and clear to auscultation bilaterally AUSCULTATION: clear to auscultation bilaterally Cardio: COMMON NORMALS: regular rate, regular rhythm, S1 normal heart sound present and S2 normal heart sound present RATE: regular rate RHYTHM: r egular rhythm HEART SOUNDS: S1 normal heart sound present and S2 normal heart sound present GI: COMMON NORMALS: Normal to inspection, nondistended, normoactive bowel sounds present and non-tender Extremity: NARRATIVE EXTREMITY EXAM: Right lower extremity wrapped OTHER: 2+ pitting edema Neuro: COMMON NORMALS: patient oriented x3 Psych: COMMON NORMALS: mental status grossly normal Urinary Catheter Management: Weber: Cath Placed During This Visit: yes Reason for Continuing Indwelling Catheter: Perioperative Use in Selected Surgeries Urinary Catheter Date of Insertion: 08/02/25 Urinary Catheter Time of Insertion: 13:28 Data 08/04/25 04:38 08/04/25 04:38 Micro: Microbiology 08/03/25 12:15 Gram Stain - Final Leg - #1 08/02/25 08:09 Urine Culture - Final Urine,Clean Catch 08/02/25 10:19 Blood Culture - Preliminary Blood NEGATIVE TO DATE A&P Assessment and plan 1. CHF (congestive heart failure): - Lasix 40 IV twice daily - Potassium 20 mEq twice daily 2. Cellulitis: Continue vancomycin Continue ciprofloxacin 3. Falls: Reported six falls in five days, including sliding off bed; hip pain noted after falls. - Hip/pelvis x-ray reviewed: no acute osseous findings - Encourage gradual activity and walking as tolerated - PT eval 4. Wound of right lower extremity: Chronic large wound on the posterolateral right lower leg with persistent weeping; follows with wound care. - Status post debridement by general surgery - Keep legs elevated 5. Cystitis: Continue IV antibiotics Plan: Right knee pain : knee x-ray without definite acute osseous findings, small joint effusion, diffuse soft tissue swelling. Lymphedema : Chronic bilateral lower extremity swelling; contributes to weeping wound environment. - Advise leg elevation during the day and night - Diuretic therapy as above Type 2 diabetes mellitus : Insulin sliding scale Hypertension : Known history of hypertension. Advance care planning : Discussed code status; patient is agreeable to full resuscitative efforts (CPR, defibrillation, intubation) if needed. Identified daughter (and three children) as surrogate decision-makers if capacity changes. - Document full code status - Record daughter/children as surrogate contacts Alpha gal allergy. Plan for today continue IV antibiotics, IV diuresis, PT OT PDMP PDMP Reviewed: Not Reviewed Attestations 2 Medical Necessity Statement*: Patient requires hospitalization for fluid overload requiring IV diuresis, cellulitis requiring IV antibiotics Diagnoses CHF (congestive heart failure) I50.9 Cellulitis L03.90 Falls R29.6 Wound of right lower extremity S81.801A Cystitis N30.90
[2025-08-05] VITALS: BP 119/78; PULSE 106; RESP 17; TEMP 36.7; O2SAT 99
[2025-08-05 05:04] LABS: Hematocrit 31.6 % (36-47); Hemoglobin 10.10 g/dL (11.27-16.99); Mean Corpuscular HGB Conc 32.0 g/dL (30-55); Mean Corpuscular Hemoglobin 28.6 pg (27-33); Mean Corpuscular Volume 89.5 fl (85-98); Nucleated Red Blood Cells % 0 %; Platelet Count 314 10^3/cmm (157-399); Red Blood Count 3.53 10^6/uL (3.85-5.65); White Blood Count 9.38 10^3/uL (3.29-11.43)
[2025-08-05 05:29] LABS: Alanine Aminotransferase 22 U/L (0-33); Albumin Level 3.0 g/dL (3.5-5.2); Alkaline Phosphatase 61 U/L (35-105); Anion Gap 13.7 (5-19); Aspartate Amino Transferase 57 U/L (0-32); Blood Urea Nitrogen 15 mg/dL (8-23); Calcium 8.0 mg/dL (8.5-10.5); Carbon Dioxide 25 mmol/L (22-29); Chloride 100 mmol/L (98-107); Globulin 3.3 g/dL (1.3-4.6); Glucose 101 mg/dL (65-115); Osmolality Calculated 281 mOsm/kg (285-295); Potassium 3.7 mmol/L (3.5-5.1); Sodium 135 mmol/L (136-145); Total Protein 6.3 g/dL (6.6-8.7)
[2025-08-05 05:36] LABS: Creatinine Clr Calc Pharmacy 52.0484
[2025-08-05 06:00] VITALS: BP 143/83; PULSE 101; RESP 18; TEMP 36.4; O2SAT 97
[2025-08-05 07:23] VITALS: BP 112/61; PULSE 98; RESP 17; TEMP 36.4; O2SAT 95
--- NOTE | 2025-08-05 08:19 | P.PN_ITS ---
Subjective 2 Subjective: Good progression after debridement of bilateral lower extremities, no significant events overnight Vitals/I&O/Wt Last Vital Signs Temp 97.6 F 08/05/25 07:23 Pulse 98 08/05/25 07:23 Resp 17 08/05/25 07:23 BP 112/61 08/05/25 07:23 Pulse Ox 95 08/05/25 07:23 O2 Del Method Room Air 08/05/25 07:23 O2 Flow Rate 10 08/03/25 13:06 08/04/25 08/05/25 08/05/25 22:59 06:59 14:59 Intake Total 240 / 1170 1170 / 2340 360 / 360 Output Total 550 / 2000 Balance 240 / -280 620 / 340 360 / 360 Weight last 48 hrs Weight 214 lb Weight 214 lb Physical Exam 2 Extremity: OTHER: Bilateral lower extremity edema is once again identified, wounds are stable, no significant worsening of discharge or cellulitis. Urinary Catheter Management: Weber: Cath Placed During This Visit: yes Reason for Continuing Indwelling Catheter: Other Urinary Catheter Date of Insertion: 08/02/25 Urinary Catheter Time of Insertion: 13:28 Data 08/05/25 02:56 08/05/25 02:56 Micro: Microbiology 08/03/25 12:15 Gram Stain - Final Leg - #1 Anaerobic Culture - Preliminary Wound Culture - Preliminary Strep pyogenes (grp a) 08/02/25 08:09 Urine Culture - Final Urine,Clean Catch A&P Assessment and plan 1. Cellulitis: 2. Wound of right lower extremity: Plan: Patient showing good progress after surgical debridement of bilateral lower extremity ulcerations. Patient can continue follow-up as outpatient with the wound care clinic, she can return to the general surgery clinic as needed. Wound care instructions have been given to nursing staff for dressings while the patient is in house. She shows understanding agrees with the plan, all of their care per primary PDMP PDMP Reviewed: Not Reviewed Attestations 2 Medical Necessity Statement*: Per medical team Coding Level of Care Code Acute Code for [facility] F[facility] Diagnoses Cellulitis L03.90 Wound of right lower extremity S81.801A
[2025-08-05] MEDS: FUROsemide 10 mg/mL SDV 4mL 40 MG IVP (09:56)
[2025-08-05 11:20] VITALS: BP 146/77; PULSE 101; TEMP 36.3; O2SAT 100
--- NOTE | 2025-08-05 12:09 | PM.DCS ---
Discharge Providers Date of Admission: 08/03/25 10:51 Date of Discharge: August 05, 2025 Attending Provider at Admission: Jason John Attending Provider at Discharge: Herson Ventura MD Primary Care Provider: KP Alvarado Diagnoses at Discharge Discharge Diagnosis 1. Cellulitis: 2. Wound of right lower extremity: Reason for Visit Reason for Visit: FALL- R KNEE PAIN Hospital Course Hospital Course This is a 75-year-old female with a past medical history of lymphedema, type 2 diabetes, history of chronic right lower extremity wound, who presents to [facility] due to lower extremity edema, increased right lower extremity swelling, worsening right lower extremity wound Patient was admitted to [facility] for diastolic CHF exacerbation requiring IV diuresis, overall clinically improved with IV diuresis, discharged on p.o. Lasix with close follow-up with cardiology For cellulitis and wound of right lower extremity, status post debridement by general surgery managed with IV antibiotics, overall clinically proved discharged on p.o. antibiotics, follow-up with wound care as outpatient For cystitis, received IV antibiotics, discharged on p.o. antibiotics For her falls, seen by physical therapy, she on discharge walk 30 feet, transfer to chair, discharged on home exercise program Physical Exam Const: COMMON NORMALS: no acute distress and patient oriented x3 Resp: COMMON NORMALS: normal respiratory effort, No retractions, No use of accessory muscles and clear to auscultation bilaterally AUSCULTATION: clear to auscultation bilaterally Cardio: COMMON NORMALS: regular rate, regular rhythm, S1 normal heart sound present and S2 normal heart sound present RATE: regular rate RHYTHM: regular rhythm HEART SOUNDS: S1 normal heart sound present and S2 normal heart sound present GI: COMMON NORMALS: Normal to inspection, nondistended, normoactive bowel sounds present and non-tender Extremity: COMMON NORMALS: no pedal edema Neuro: COMMON NORMALS: patient oriented x3 Psych: COMMON NORMALS: mental status grossly normal Urinary Catheter Management: Weber: Cath Placed During This Visit: yes Reason for Continuing Indwelling Catheter: Other Urinary Catheter Date of Insertion: 08/02/25 Urinary Catheter Time of Insertion: 13:28 Discharge Data Studies Completed and Pending Completed Studies During Hospitalization Category Date Time Status XR chest 1V portable [id number] Stat Exams 08/02/25 07:03 Completed XR hip RT 2-3V wo/w pel* [id number] Stat Exams 08/02/25 07:00 Completed XR knee RT 3V* [id number] Stat Exams 08/02/25 06:49 Completed XR shoulder RT min 2V* [id number] Routine Exams 08/02/25 11:37 Completed CV. echo complete* [id number] Routine Ultrasound 08/02/25 11:37 Completed US arterial duplex lower extremity RT [CV arterial Ultrasound 08/02/25 11:37 [place] [id number]] Routine US venous duplex lower extremity bilat [CV venous Ultrasound 08/02/25 07:00 [place] [id number]] Stat Pending at discharge Category Date Time Status Anaerobic Culture Routine Lab 08/03/25 12:15 Results Blood Culture Stat Lab 08/02/25 10:19 Results Complete Blood Count w/Auto AM LABS Lab 08/06/25 04:00 Ordered Comprehensive Metabolic Panel AM LABS Lab 08/06/25 04:00 Ordered Wound Culture and Gram Stain Routine Lab 08/03/25 09:08 Ordered Wound Culture and Gram Stain Routine Lab 08/03/25 12:15 Results Radiology Impressions Knee X-Ray 08/02/25 06:49 IMPRESSION: 1. No definite acute osseous findings. 2. Small joint effusion. 3. Diffuse soft tissue swelling. Hip/Pelvis X-Ray 08/02/25 07:00 IMPRESSION: No acute osseous findings. Chest X-Ray 08/02/25 07:03 IMPRESSION: Mild central pulmonary vascular congestion without overt edema. Duplex Scan Lower Extremity Artery 08/02/25 11:37 IMPRESSION: No high-grade stenosis or occlusion. Shoulder X-Ray 08/02/25 11:37 IMPRESSION: Demineralization consistent with the patient's age. Degenerative changes.. Laboratory Results WBC 9.38 10^3/uL (3.29-11.43) 08/05/25 02:56 RBC 3.53 10^6/uL (3.85-5.65) L 08/05/25 02:56 Hgb 10.10 g/dL (11.27-16.99) L 08/05/25 02:56 Hct 31.6 % (36-47) L 08/05/25 02:56 MCV 89.5 fl (85-98) 08/05/25 02:56 MCH 28.6 pg (27-33) 08/05/25 02:56 MCHC 32.0 g/dL (30-55) 08/05/25 02:56 RDW 15.0 % (12.1-15.1) 08/05/25 02:56 Plt Count 314 10^3/cmm (157-399) 08/05/25 02:56 MPV 9.6 fL (7.4-10.4) 08/05/25 02:56 Neut % (Auto) 79.2 % 08/05/25 02:56 Lymph % (Auto) 11.4 % 08/05/25 02:56 Ware % (Auto) 8.3 % 08/05/25 02:56 Eos % (Auto) 0.0 % 08/05/25 02:56 Baso % (Auto) 0.6 % 08/05/25 02:56 Neut # (Auto) 7.42 10^3/uL (1.8-7.7) 08/05/25 02:56 Lymph # (Auto) 1.1 10^3/uL (0.8-4.8) 08/05/25 02:56 Ware # (Auto) 0.8 10^3/uL (0.2-0.9) 08/05/25 02:56 Eos # (Auto) 0.0 10^3/uL (0.0-0.8) 08/05/25 02:56 Baso # (Auto) 0.1 10^3/uL (0.0-0.1) 08/05/25 02:56 Nucleated RBC % (auto) 0 % 08/05/25 02:56 Nucleated RBCs # 0.0 /100WBC 08/05/25 02:56 Sodium 135 mmol/L (136-145) L 08/05/25 02:56 Potassium 3.7 mmol/L (3.5-5.1) 08/05/25 02:56 Chloride 100 mmol/L (98-107) 08/05/25 02:56 Carbon Dioxide 25 mmol/L (22-29) 08/05/25 02:56 Anion Gap 13.7 (5-19) 08/05/25 02:56 BUN 15 mg/dL (8-23) 08/05/25 02:56 Creatinine 1.0 mg/dL (0.5-0.9) H 08/05/25 02:56 GFR Calculation Not Reportable 08/05/25 02:56 Glucose 101 mg/dL (65-115) 08/05/25 02:56 POC Glucose 147 mg/dL (70-110) H 08/05/25 10:27 Calculated Osmolality 281 mOsm/kg (285-295) L 08/05/25 02:56 Lactic Acid 2.0 mmol/L (0.5-2.2) 08/02/25 07:20 Calcium 8.0 mg/dL (8.5-10.5) L 08/05/25 02:56 Magnesium 1.8 mg/dL (1.7-2.3) 08/04/25 04:38 Total Bilirubin 0.4 mg/dL (0.15-1.2) 08/05/25 02:56 AST 57 U/L (0-32) H 08/05/25 02:56 ALT 22 U/L (0-33) 08/05/25 02:56 Alkaline Phosphatase 61 U/L (35-105) 08/05/25 02:56 NT-Pro-B Natriuret Pep 2061 pg/mL (0-450) H 08/02/25 07:20 Total Protein 6.3 g/dL (6.6-8.7) L 08/05/25 02:56 Albumin 3.0 g/dL (3.5-5.2) L 08/05/25 02:56 Globulin 3.3 g/dL (1.3-4.6) 08/05/25 02:56 Urine Color Yellow (Yellow) 08/02/25 08:09 Urine Appearance Clear (CLEAR) 08/02/25 08:09 Urine pH 6.0 (5-7) 08/02/25 08:09 Ur Specific [place] 1.010 (1.005-1.030) 08/02/25 08:09 Urine Protein Negative (Negative) 08/02/25 08:09 Urine Glucose (UA) Negative (Normal) 08/02/25 08:09 Urine Ketones Negative (Negative) 08/02/25 08:09 Urine Blood Negative (Negative) 08/02/25 08:09 Urine Nitrate Negative (Negative) 08/02/25 08:09 Urine Bilirubin Negative (Negative) 08/02/25 08:09 Urine Urobilinogen 1.0 mg/dL (Negative) 08/02/25 08:09 Ur Leukocyte Esterase 1+ (Negative) A 08/02/25 08:09 Urine RBC 0-2 /hpf (0-2) 08/02/25 08:09 Urine WBC 11-20 /hpf (0-5) H 08/02/25 08:09 Ur Squamous Epith Cells 0-5 /hpf (0-5) 08/02/25 08:09 Amorphous Sediment Not Reportable 08/02/25 08:09 Urine Bacteria 3+ /hpf (NONE) H 08/02/25 08:09 Hyaline Casts 3.71 /lpf 08/02/25 08:09 Vancomycin Trough 11.2 ug/mL (08-02) 08/04/25 10:05 Vitals Last Vital Signs Temp 97.4 F L 08/05/25 11:20 Pulse 101 H 08/05/25 11:20 Resp 17 08/05/25 07:23 BP 146/77 08/05/25 11:20 Pulse Ox 100 08/05/25 11:20 O2 Del Method Room Air 08/05/25 11:20 O2 Flow Rate 10 08/03/25 13:06 Discharge Plan Discharge Patient Disposition: Home Condition: Stable Prescriptions: New potassium chloride [Klor-Con M20] 20 mEq Tablet,Er Particles/Crystals 20 meq PO DAILY 30 Days Qty: 30 0RF ciprofloxacin HCl 500 mg tablet 500 mg PO BID 5 Days Qty: 10 0RF linezolid [Zyvox] 600 mg tablet 600 mg PO BID 5 Days Qty: 10 0RF Continued metformin 500 mg tablet 500 mg PO BID cetirizine [All Day Allergy (cetirizine)] 10 mg tablet 10 mg PO DAILY PRN (Reason: Itching) clonidine HCl 0.2 mg tablet 0.2 mg PO DAILY epinephrine 0.3 mg/0.3 mL auto-injector 0.3 mg IM Q10M PRN (Reason: Allergic Reaction) Rx Instructions: for 2 doses levothyroxine [Synthroid] 150 mcg tablet 150 mcg PO DAILY bupropion HCl [Wellbutrin XL] 300 mg tablet extended release 24 hr 300 mg PO QAM Qty: 30 2RF risperidone 1 mg tablet 1 mg PO BID Qty: 60 2RF furosemide 40 mg tablet 40 mg PO DAILY spironolactone 25 mg tablet 25 mg PO DAILY vitamin D3-vitamin K2 1,250-200 mcg Capsule 1 cap PO DAILY ibuprofen [Advil] 200 mg Tablet 200 mg PO Q6H PRN (Reason: Fever Or Pain) liothyronine 5 mcg tablet 5 mcg PO DAILY Discontinued clonidine HCl 0.2 mg tablet 0.2 mg PO DAILY nitrofurantoin monohyd/m-cryst 100 mg capsule 100 mg PO BID Discharge Order = DC NOW: Discharge Order (Routine); Ordered 08/05/25 Ordered By: Herson Ventura Referrals: Shirlene Simeon MD [Physician, Cardiology] - 2 weeks Yogesh Mora MD [Physician, Wound Care] - 1-3 days Referral Note: wound care Discharge Diet: Cardiac Discharge Activity: Resume usual activity Patient Instructions: Acute Wound Care (DC), Opioid Safety, Post Anesthesia Care, Patient Portal & Leila Instructions Activity Restrictions/Additional Instructions: - Please follow-up with wound care - Please follow-up with primary care - Please follow-up with cardiology Discharge Attestations Time Spent in Discharge Care*: greater than 30 min Quality Metrics Clinical Quality Measures [ No reported AMI, CVA or VTE this stay] Coding Level of Care Code 83139 Total time (in minutes) for Discharge: 45 Diagnoses Cellulitis L03.90 Wound of right lower extremity S81.801A
[2025-08-05 15:46] VITALS: BP 144/76; PULSE 101; RESP 16; TEMP 36.3; O2SAT 100
== END 2025-08-05 15:47 | disposition home or self-care (01) | DRG 579 ==
LOC: ER 11:07 → ER IP 11:38 → MEDSURG 12:57
PROVIDERS: Surgery; Admitting Provider Internal Medicine; Emergency Provider Family Medicine; PCP Nurse Practitioner Family; Visit Provider Family Medicine
PROC: 0JBP3ZZ Excision of Left Lower Leg Subcutaneous Tissue and Fascia, Percutaneous Approach (ICD-10-PCS; principal; 2025-08-03 13:00)
DX: L03.116 Cellulitis of left lower limb (principal); I50.33 Acute on chronic diastolic (congestive) heart failure; L97.819 Non-pressure chronic ulcer of other part of right lower leg with unspecified severity; L97.829 Non-pressure chronic ulcer of other part of left lower leg with unspecified severity; E03.9 Hypothyroidism, unspecified; E11.622 Type 2 diabetes mellitus with other skin ulcer; I11.0 Hypertensive heart disease with heart failure; I45.10 Unspecified right bundle-branch block; N30.90 Cystitis, unspecified without hematuria; I87.8 Other specified disorders of veins; Z79.899 Other long term (current) drug therapy; Z79.890 Hormone replacement therapy; Z79.84 Long term (current) use of oral hypoglycemic drugs; Z88.1 Allergy status to other antibiotic agents; Z88.3 Allergy status to other anti-infective agents; Z88.5 Allergy status to narcotic agent; Z88.0 Allergy status to penicillin; Z88.8 Allergy status to other drugs, medicaments and biological substances; Z91.81 History of falling
CPT/HCPCS: 36415; 36416; 51702; 71045; 73030; 73502; 73562; 80053; 80202; 81001; 82962; 83605; 83735; 83880; 85025; 87040; 87070; 87075; 87086; 87186; 87205; 93005; 93306; 93926; 93970; 96372; 96374; 97110; 97116; 97162; 97530; 99285; G0378; J0696; J0744; J1100; J1652; J1815; J1938; J2704; J3010; J3373; J3475; J3480; J7050; J9999

== ENCOUNTER → 2025-08-09 13:40 | Outpatient (BNVA) | payer MEDICARE, SELFPAY | PROVIDERS: PCP Nurse Practitioner Family; Visit Provider Thoracic Surgery (Cardiothoracic Vascular Surgery) | DX: E11.52 Type 2 diabetes mellitus with diabetic peripheral angiopathy with gangrene (principal); E11.622 Type 2 diabetes mellitus with other skin ulcer; L97.811 Non-pressure chronic ulcer of other part of right lower leg limited to breakdown of skin; L97.821 Non-pressure chronic ulcer of other part of left lower leg limited to breakdown of skin | CPT/HCPCS: 97597; 97598 ==

== ENCOUNTER → 2025-08-16 13:33 | Outpatient (BNVA) | payer MEDICARE, SELFPAY | PROVIDERS: PCP Nurse Practitioner Family; Visit Provider Thoracic Surgery (Cardiothoracic Vascular Surgery) | DX: E11.52 Type 2 diabetes mellitus with diabetic peripheral angiopathy with gangrene (principal); E11.622 Type 2 diabetes mellitus with other skin ulcer; L97.811 Non-pressure chronic ulcer of other part of right lower leg limited to breakdown of skin; L97.821 Non-pressure chronic ulcer of other part of left lower leg limited to breakdown of skin | CPT/HCPCS: 97597; 97598; A6253 ==

== ENCOUNTER → 2025-08-21 14:36 | Outpatient (BNVA) | payer MEDICARE, SELFPAY | PROVIDERS: PCP Nurse Practitioner Family; Visit Provider Thoracic Surgery (Cardiothoracic Vascular Surgery) | DX: E11.52 Type 2 diabetes mellitus with diabetic peripheral angiopathy with gangrene (principal); E11.622 Type 2 diabetes mellitus with other skin ulcer; L97.811 Non-pressure chronic ulcer of other part of right lower leg limited to breakdown of skin; L97.821 Non-pressure chronic ulcer of other part of left lower leg limited to breakdown of skin | CPT/HCPCS: 97597; 97598; A6253 ==

== ENCOUNTER → 2025-09-07 13:42 | Outpatient (BNVA) | payer MEDICARE, SELFPAY | PROVIDERS: PCP Nurse Practitioner Family; Visit Provider Thoracic Surgery (Cardiothoracic Vascular Surgery) | DX: E11.52 Type 2 diabetes mellitus with diabetic peripheral angiopathy with gangrene (principal); E11.622 Type 2 diabetes mellitus with other skin ulcer; L97.811 Non-pressure chronic ulcer of other part of right lower leg limited to breakdown of skin; L97.821 Non-pressure chronic ulcer of other part of left lower leg limited to breakdown of skin | CPT/HCPCS: 97597; 97598; A6253 ==

== ENCOUNTER 2025-09-10 11:32 | Observation (INO) | payer MEDICARE, SELFPAY ==
[2025-09-10] VITALS (29 sets, daily range): BP systolic 138–198; BP diastolic 55–131; PULSE 86–90; RESP 16; TEMP 36.5–36.8; O2SAT 83–100; BMI 36.6
--- NOTE | 2025-09-10 11:41 | XRR_ITS ---
PROCEDURE INFORMATION: Exam: XR Chest Exam date and time: 09/10/2025 12:30 PM Age: 75 years old Clinical indication: Dyspnea; Additional info: Presurgical work up TECHNIQUE: Imaging protocol: Radiologic exam of the chest. Views: 1 view. COMPARISON: CR XR chest 1V portable [id number] 08/02/2025 7:19 AM FINDINGS: Lungs: Unremarkable. No consolidation. Pleural spaces: Unremarkable. No pleural effusion. No pneumothorax. Heart/Mediastinum: The heart is enlarged. Bones/joints: Moderate degenerative disease of bilateral acromioclavicular joints. The thoracic spine demonstrates mild degenerative changes at multiple levels. Bilateral rotator cuff repair. XR/XR chest 1V portable [id number] IMPRESSION: 1. No acute cardiopulmonary process. 2. Cardiomegaly.
--- NOTE | 2025-09-10 11:41 | XRR_ITS ---
PROCEDURE INFORMATION: Exam: XR Right Hip Exam date and time: 09/10/2025 12:30 PM Age: 75 years old Clinical indication: Hip pain; Right hip TECHNIQUE: Imaging protocol: Radiologic exam of the right hip. Views: 1 view hip with pelvis when performed. COMPARISON: CR XR hip RT 2-3V wo/w pel* [id number] 08/02/2025 7:21 AM FINDINGS: Bones/joints: The pubic symphysis demonstrates mild degenerative changes. There are mild degenerative changes of the sacroiliac joints. Soft tissues: Unremarkable. Gastrointestinal tract: Mild fecal loading in the rectum. XR/XR hip RT 2-3V wo/w pel* [id number] IMPRESSION: No acute fracture or dislocation.
--- NOTE | 2025-09-10 12:05 | W.ED.EXTPRO ---
HPI - Extremity Problem General: Chief complaint: Extremity Injury, Lower Stated complaint: right hip pain s/p fall Time Seen by Provider: 09/10/25 11:38 History of Present Illness: 75-year-old female with a history of morbid obesity, hypothyroidism, type 2 diabetes, hypertension, chronic lower extremity edema, CHF, and depression who presents emergency room after having had a fall. She says she usually uses a walker but she was using her cane because a wheel had fallen off of the walker and she lost her balance and fell. She is having pain in her right hip area with movement. No obvious shortening or rotation. No chest pain. No abdominal pain. No other known injuries. No head injury. No loss of consciousness. No nausea or vomiting. No altered mental status. Related Data Home Medications ?Medication ?Instructions ?Recorded ?Confirmed cetirizine 10 mg tablet (All Day 10 mg PO DAILY PRN Itching 03/20/25 09/07/25 Allergy (cetirizine)) clonidine HCl 0.2 mg tablet 0.2 mg PO DAILY 03/20/25 09/07/25 epinephrine 0.3 mg/0.3 mL 0.3 mg IM Q10M PRN Allergic 03/20/25 09/07/25 injection, auto-injector Reaction metformin 500 mg tablet 500 mg PO BID 03/20/25 09/07/25 levothyroxine 150 mcg tablet 150 mcg PO DAILY 06/12/25 09/07/25 (Synthroid) furosemide 40 mg tablet 40 mg PO DAILY 08/02/25 09/07/25 ibuprofen 200 mg tablet (Advil) 200 mg PO Q6H PRN Fever Or Pain 08/02/25 09/07/25 liothyronine 5 mcg tablet 5 mcg PO DAILY 08/02/25 09/07/25 spironolactone 25 mg tablet 25 mg PO DAILY 08/02/25 09/07/25 vitamin D3 1,250 mcg (50,000 1 cap PO DAILY 08/02/25 09/07/25 unit)-vitamin K2 200 mcg capsule Previous Rx's ?Medication ?Instructions ?Recorded bupropion HCl 300 mg 24 hr tablet, 300 mg PO QAM #30 tabs 08/10/25 extended release (Wellbutrin XL) levofloxacin 500 mg tablet 500 mg PO DAILY #7 tabs 08/21/25 Allergies Allergy/AdvReac Type Severity Reaction Status Date / Time Alpha-Gal Allergy Intermediate ALGY-Hives Verified 08/10/25 13:57 (Lgpmndlls-Cdqlu-2,3-Gala Penicillins Allergy Intermediate ALGY-Hives Verified 08/10/25 13:57 niacin Allergy Unknown Unknown Verified 08/10/25 13:57 clarithromycin Allergy ADR-Vomitin Verified 08/10/25 13:57 g codeine Allergy palpitation Verified 08/10/25 13:57 s escitalopram (From Lexapro) Allergy uticaria Verified 08/10/25 13:57 minocycline Allergy Unknown Verified 08/10/25 13:57 ondansetron (From Zofran) Allergy constipatio Verified 08/10/25 13:57 n simvastatin Allergy palpitation Verified 08/10/25 13:57 s Review of Systems Narrative: Constitutional symptoms: Negative except as documented in HPI. Skin symptoms: Negative except as documented in HPI. Eye symptoms: Negative except as documented in HPI. ENMT symptoms: Negative except as documented in HPI. Respiratory symptoms: Negative except as documented in HPI. Cardiovascular symptoms: Negative except as documented in HPI. Gastrointestinal symptoms: Negative except as documented in HPI. Genitourinary symptoms: Negative except as documented in HPI. Musculoskeletal symptoms: Negative except as documented in HPI. Neurologic symptoms: Negative except as documented in HPI. Psychiatric symptoms: Negative except as documented in HPI. Endocrine symptoms: Negative except as documented in HPI. PFSH ED PFSH: Medical History (Updated 09/10/25 @ 14:35 by Anat Cisneros MD) Hypothyroidism DM type 2 (diabetes mellitus, type 2) HTN (hypertension) Psychiatric care Social History Smoking and tobacco/nicotine status: current every day tobacco/nicotine user Alcohol intake: never Substance/Drug Use: never Household members: other Details: Granddaughter Physical Exam Narrative: EXAM NARRATIVE: General: Alert, no acute distress. Skin: Warm, dry. Diffuse erythema and edema of the lower extremities with bilateral dressings in place. Head: Normocephalic, atraumatic. Neck: Supple, trachea midline. Eye: Extraocular movements are intact. Ears, nose, mouth and throat: mucosa moist. Cardiovascular: Regular, Normal peripheral perfusion. Respiratory: Lungs are clear to auscultation, respirations are non-labored, breath sounds are equal, Symmetrical chest wall expansion. Gastrointestinal: Soft, Nontender, Non distended Musculoskeletal: No obvious shortening or rotation but even with passive movement of her legs she has extreme pain in the lateral right hip area. Neurological: Alert and oriented, No focal neurological deficit observed. Psychiatric: Cooperative, appropriate mood & affect. Course Vital Signs: Vital signs: Vital Signs Temperature 98.3 F 09/10/25 11:34 Pulse Rate 86 09/10/25 11:34 Respiratory Rate 16 09/10/25 11:34 Blood Pressure 168/102 09/10/25 14:30 Pulse Oximetry 99 09/10/25 14:15 Oxygen Delivery Me thod Room Air 09/10/25 11:34 MDM - Extremity (Nontraumatic) Medical Decision Making Medical decision making Patient's reason for coming to the emergency room: Fall with right hip pain Social determinants: Patient is retired. She tells me she lives with her daughter. I reviewed the patient's medical record. 75-year-old female with a history of morbid obesity, hypothyroidism, type 2 diabetes, hypertension, chronic lower extremity edema, CHF, and depression I reviewed the patient's current home meds Patient is not on any anticoagulation. She takes metformin for diabetes. Alternate historians: None Differential diagnosis for the patient with fall and hip pain includes but not limited to and based on the above HPI, review of systems and physical exam: Hip fracture, femur fracture, pelvic fractures including pubic rami and acetabular fractures, hip strain, hip contusion X-ray of the right hip and pelvis: No obvious acute fractures. This was reviewed and interpreted by myself the emergency room physician. I also reviewed the radiology report. CT was ordered to further evaluate given the level of patient's pain CT of the hip and pelvis: No acute fractures. Given the level of the patient's pain I ordered a CT to be sure there was not an occult fracture. This was reviewed and interpreted by myself the emergency room physician. I also reviewed the radiology report. Went back to the patient's room to follow-up after imaging was done and she said her shoulder hurt. So I ordered a shoulder x-ray that she said this was all pain at that point. I talked to Ortho who recommends a CT just to be sure that that is old which it looks to be. X-ray of the left shoulder: Subluxation with fracture. This was reviewed and interpreted by myself the emergency room physician. I also reviewed the radiology report. Consultation: I spoke with Dr. Rehman who advised a CT scan just to be sure this was old. Shoulder CT: No acute fracture. Joint effusion with subluxation of the glenohumeral joint. Chronic rotator cuff tear. This was reviewed and interpreted by myself the emergency room physician. I also reviewed the radiology report. Lab Review: Laboratory results were reviewed and interpreted by myself the emergency room physician. No lab work done today. Assessment of risk: Level of risk: Hospitalization considerations: Reexamination: Given patient's shoulder problems and the pain in her hip she does not think she can walk or get around. She is requesting halfway placement. Consultation: I spoke to Dr. John who will observe the patient for now and case management will be consult for possible placement Assessment and plan: Hip injury Falls Generalized weakness Shoulder injury ?Rachele in the emergency room -I discussed the patient with the hospitalist on-call who is admitting the patient. - Discussed findings and plan with patient. Answered any questions. - All imaging was reviewed and interpreted personally by myself, the ER physician. - Evaluation and treatment of this problem were appropriate in the emergency setting Lab Data Radiology Impressions Chest X-Ray 09/10/25 11:41 IMPRESSION: 1. No acute cardiopulmonary process. 2. Cardiomegaly. Hip/Pelvis X-Ray 09/10/25 11:41 IMPRESSION: No acute fracture or dislocation. Pelvis CT 09/10/25 13:36 IMPRESSION: 1. No acute fracture or dislocation. 2. Mild constipation. Shoulder X-Ray 09/10/25 14:36 IMPRESSION: Anterior subluxation of the glenohumeral joint with surrounding soft swelling. Findings concerning for fracture of the posterior aspect of the humeral head. Shoulder CT 09/10/25 15:31 IMPRESSION: 1. No acute fracture. 2. Large glenohumeral joint effusion with anterior inferior subluxation of the glenohumeral joint. 3. Findings of chronic rotator cuff tear with severe atrophy of the supraspinatus and infraspinatus muscles. All radiology interpretation(s) finalized by discharge Discharge Plan Discharge Patient Disposition: Placed in Observation Clinical Impression: Injury of hip Coding Level of Care Code ED Typing Teacher for Henry Valle
--- NOTE | 2025-09-10 13:36 | CTR_ITS ---
PROCEDURE INFORMATION: Exam: CT Pelvis Without Contrast, Skeleton Exam date and time: 09/10/2025 1:48 PM Age: 75 years old Clinical indication: Pain and injury or trauma; Fall; Blunt trauma (contusions or hematomas); Hip pain; Right hip; Additional info: Right hip pain. Negative x-ray. Still with severe pain TECHNIQUE: Imaging protocol: Computed tomography of the pelvis without contrast. Exam focused on the skeleton. Radiation optimization: All CT scans at this facility use at least one of these dose optimization techniques: automated exposure control; mA and/or kV adjustment per patient size (includes targeted exams where dose is matched to clinical indication); or iterative reconstruction. COMPARISON: CR (PELVIS, ) 09/10/2025 12:30 PM RADIATION DOSE METRICS: Total DLP (mGy-cm): 742.09 FINDINGS: Intestine: Mild diverticulosis is present in the distal colon. Mild fecal loading in the rectum. There is mildly excessive colonic stool content. Vasculature: The vasculature demonstrates diffuse mild atherosclerotic calcification. Bones/joints: Demineralization of the visualized bones, limiting sensitivity for nondisplaced fractures. There are moderate degenerative changes of the sacroiliac joints. The pubic symphysis demonstrates moderate degenerative changes. Bilateral L5-S1 assimilation joints. There are mild degenerative changes of the hip joints. Mild anterolisthesis of L3 over L4 and L4 over L5 due to bilateral facet joint arthropathy. Soft tissues: Mild abdominal wall subcutaneous edema. Other findings: No organized collections. CT/CT pelvis wo con [id number] IMPRESSION: 1. No acute fracture or dislocation. 2. Mild constipation.
[2025-09-10] MEDS: HYDROcodone-acetaminophen 10-325 mg Tablet 1 TAB PO (14:13)
--- NOTE | 2025-09-10 14:36 | XRR_ITS ---
PROCEDURE INFORMATION: Exam: XR Left Shoulder Exam date and time: 09/10/2025 3:41 PM Age: 75 years old Clinical indication: Pain and injury or trauma; Fall; Blunt trauma (contusions or hematomas); Shoulder; Left; Additional info: Shoulder pain TECHNIQUE: Imaging protocol: Radiologic exam of the left shoulder. Views: 2 or more views. COMPARISON: CR (CHEST, ) 09/10/2025 12:30 PM FINDINGS: Bones/joints: Moderate degenerative disease of the left acromioclavicular joint. Anterior subluxation of the glenohumeral joint. Density at the posterior aspect of the humeral head, that can represent calcific tendinosis versus fracture. Soft tissues: There soft swelling around the glenohumeral joint. XR/XR shoulder LT min 2V* [id number] IMPRESSION: Anterior subluxation of the glenohumeral joint with surrounding soft swelling. Findings concerning for fracture of the posterior aspect of the humeral head.
--- NOTE | 2025-09-10 15:31 | CTR_ITS ---
PROCEDURE INFORMATION: Exam: CT Left Upper Extremity Without Contrast, Shoulder Exam date and time: 09/10/2025 3:42 PM Age: 75 years old Clinical indication: Injury or trauma; Fall; Blunt trauma (contusions or hematomas); Shoulder; Left; Additional info: Subluxation TECHNIQUE: Imaging protocol: Computed tomography of the left upper extremity without contrast. Exam focused on the shoulder. Radiation optimization: All CT scans at this facility use at least one of these dose optimization techniques: automated exposure control; mA and/or kV adjustment per patient size (includes targeted exams where dose is matched to clinical indication); or iterative reconstruction. COMPARISON: CR (CHEST, ) 09/10/2025 3:41 PM RADIATION DOSE METRICS: Total DLP (mGy-cm): 818.23 FINDINGS: Bones/joints: Large glenohumeral joint effusion. There is anterior inferior subluxation of the glenohumeral joint. Multiple joint bodies at the posterior aspect of the glenohumeral joint measuring up to 1.4 cm. Joint body at the anterior inferior aspect of the glenohumeral joint measuring 7 mm. Cystic changes of the greater tuberosity, consistent with chronic rotator cuff disease. Soft tissues: Severe atrophy of the supraspinatus and infraspinatus muscles. CT/CT shoulder LT wo con* [id number] IMPRESSION: 1. No acute fracture. 2. Large glenohumeral joint effusion with anterior inferior subluxation of the glenohumeral joint. 3. Findings of chronic rotator cuff tear with severe atrophy of the supraspinatus and infraspinatus muscles.
--- NOTE | 2025-09-10 16:37 | PM.HP ---
Providers/Chief Complaint Admitting Physician: Jason John MD Primary Care Provider: KP Alvarado Chief Complaint: right hip pain s/p fall History of Present Illness Joan Gold is a 75 year old female with PMHx of HTN, HF, chronic LE edema, DM 2T, obesity, alpha gal, hypothyroidism and anxiety / depression.Patient presented to the ED on 09/10/2025 after a mechanical fall. Today was using cane for ambulation, lost balance and fell with impact to right hip. Denies injury to the head. She was unable to get up. Experienced pain immediately. Niece, who was in the house, summoned EMS. Ambulates with walker at baseline. Currently complaining of right hip pain and left shoulder pain. Denies numbness, tingling and loss of sensation. Imaging done in ED revealed large glenohumeral joint effusion (left upper extremity) XR shoulder Anterior subluxation of the glenohumeral joint with surrounding soft swelling. Findings concerning for fracture of the posterior aspect of the humeral head. CT Left Upper Extremity 1. No acute fracture. 2. Large glenohumeral joint effusion with anterior inferior subluxation of the glenohumeral joint. 3. Findings of chronic rotator cuff tear with severe atrophy of the supraspinatus and infraspinatus muscles. Medications/Allergies Home Medications ?Medication ?Instructions ?Recorded ?Confirmed ?Last Taken ?Type cetirizine 10 mg tablet (All Day 10 mg PO DAILY PRN Itching 03/20/25 09/10/25 08/01/25 History Allergy (cetirizine)) clonidine HCl 0.2 mg tablet 0.2 mg PO DAILY 03/20/25 09/10/25 09/09/25 History epinephrine 0.3 mg/0.3 mL 0.3 mg IM Q10M PRN Allergic 03/20/25 09/10/25 Unknown History injection, auto-injector Reaction metformin 500 mg tablet 500 mg PO BID 03/20/25 09/10/25 09/09/25 History levothyroxine 150 mcg tablet 150 mcg PO DAILY 06/12/25 09/10/25 09/09/25 09:00 History (Synthroid) ibuprofen 200 mg tablet (Advil) 200 mg PO Q6H PRN Fever Or Pain 08/02/25 09/10/2508/01/25 History liothyronine 5 mcg tablet 5 mcg PO DAILY 08/02/25 09/10/25 09/09/25 History spironolactone 25 mg tablet 25 mg PO DAILY 08/02/25 09/10/25 09/09/25 History vitamin D3 1,250 mcg (50,000 1 cap PO DAILY 08/02/25 09/10/25 08/01/25 History unit)-vitamin K2 200 mcg capsule bupropion HCl 300 mg 24 hr tablet, 300 mg PO QAM #30 tabs 08/10/25 09/10/25 09/09/25 Rx extended release (Wellbutrin XL) potassium chloride 20 mEq 20 meq PO DAILY 09/10/25 09/10/25 09/09/25 History tablet,extended release(part/cryst) Allergies Allergy/AdvReac Type Severity Reaction Status Date / Time Alpha-Gal Allergy Intermediate ALGY-Hives Verified 08/10/25 13:57 (Xaxygvarz-Wcvdk-2,3-Gala Penicillins Allergy Intermediate ALGY-Hives Verified 08/10/25 13:57 niacin Allergy Unknown Unknown Verified 08/10/25 13:57 clarithromycin Allergy ADR-Vomitin Verified 08/10/25 13:57 g codeine Allergy palpitation Verified 08/10/25 13:57 s escitalopram (From Lexapro) Allergy uticaria Verified 08/10/25 13:57 minocycline Allergy Unknown Verified 08/10/25 13:57 ondansetron (From Zofran) Allergy constipatio Verified 08/10/25 13:57 n simvastatin Allergy palpitation Verified 08/10/25 13:57 s PFSH Acute PFSH: Medical History (Updated 09/10/25 @ 19:34 by Kathryn Leone NP) Hypothyroidism DM type 2 (diabetes mellitus, type 2) HTN (hypertension) Psychiatric care Social History Smoking and tobacco/nicotine status: current every day tobacco/nicotine user Alcohol intake: never Substance/Drug Use: never Household members: other Details: Granddaughter Vitals/I&O/Wt Last Vital Signs Temp 98.3 F 09/10/25 11:34 Pulse 86 09/10/25 11:34 Resp 16 09/10/25 11:34 BP 168/102 09/10/25 14:30 Pulse Ox 99 09/10/25 14:15 O2 Del Method Room Air 09/10/25 11:34 Weight last 48 hrs Weight 90.718 kg Physical Exam Narrative: General: In mild distress from pain Neuro: Awake and alert. Oriented x2 HEENT: NC/AT. PERRLA, gaze conjugate Normal external ears. Normal external nose, no epistaxis. MMM Respiratory: Diminished. No tachypnea or accessory muscle use. On room air. CV Regular Extremities DP 1+, BLE with edema 2-3+ GI Abdomen remarkable for central obesity, soft. NT. ND. + BS No tijerina catheter present. Musc LUE with diminished ROM. BLE with diminished ROM. Pain in right hip with passive motion. DP and radial pulses palpable. A&P Assessment and plan 1. Effusion of glenohumeral joint of left upper extremity: Plan: # Large glenohumeral joint effusion with anterior inferior subluxation of the glenohumeral joint. 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 Will stay less than 2 midnights for the management of her glenohumeral joint effusion and placement. Coding Level of Care Code Acute Code for Chg Fwd Diagnoses Effusion of glenohumeral joint of left upper extremity M25.412
[2025-09-11] VITALS (9 sets, daily range): BP systolic 90–124; BP diastolic 54–83; PULSE 72–94; RESP 16–18; TEMP 36.3–36.8; O2SAT 92–100; BMI 36.6
[2025-09-11 06:01] LABS: Alanine Aminotransferase 12 U/L (0-33); Albumin Level 3.0 g/dL (3.5-5.2); Alkaline Phosphatase 55 U/L (35-105); Anion Gap 12.8 (5-19); Aspartate Amino Transferase 24 U/L (0-32); Blood Urea Nitrogen 10 mg/dL (8-23); Calcium 8.0 mg/dL (8.5-10.5); Carbon Dioxide 23 mmol/L (22-29); Chloride 106 mmol/L (98-107); Globulin 2.4 g/dL (1.3-4.6); Glucose 117 mg/dL (65-115); Osmolality Calculated 286 mOsm/kg (285-295); Potassium 3.8 mmol/L (3.5-5.1); Sodium 138 mmol/L (136-145); Total Protein 5.4 g/dL (6.6-8.7)
--- NOTE | 2025-09-11 09:57 | PC.CHAP ---
Pastoral Care Encounter/Spiritual Assessment Type of Contact [] Declined prepress supervisor visit [] Patient/Family/Request visit [] Outpatient visit [] Follow-up visit [] Physician referral [] Code/Alert [x] Routine visit [] Staff referral [] Actively dying [] Patient sleeping [] Family support [] [] Out of room [] Palliative care [] [] Receiving care in room [] Pre-surgical visit [] Trauma [] Long length of stay [] ICU visit [] Other: Relational/Emotional Strength [] Patient feels connected with others/family/visitors/staff [] Distress [] Loneliness/isolation [] Abandonment Spirituality of Patient [x] Person of Sanjuana [] Attends Zoroastrian of their Sanjuana [x] Believes in Prayer [] Reads Bible or Episcopalian materials [] There are Spiritual issues to be addressed Face Hardener Interventions [x] Prayer [x] Active listening [] Non-anxious presence [] Spiritual/emotional support [] Crisis/trauma care [] Spiritual counseling [] Bereavement support [] Provided bereavement packet [x] Provided Bible/devotional materials [] Provided toy/stuffed animal, coloring book to patient or family member [] Provided Communion [] Anointing/[place] [] Salvation [x] Completed spiritual assessment [] Other: Impact on Illness or Injury [] Angry [] Fearful [] Anxious [] Often cries [] Exhaustion [] Unable to work [] Unable to attend faith [] Unable to walk/stand [] Unable to read [] Unable to drive [] Unable to eat/drink [] Unable to sleep [] Unable to be with family [] Patient intubated [] Other: Summary Time spent with patient 10 min
--- NOTE | 2025-09-11 13:46 | P.PN_ITS ---
Subjective 2 Subjective: She denies any new symptoms today. She has not yet tried to get up this morning. Awaiting assessment by physical therapy. Reports left shoulder issues have been chronic. Vitals/I&O/Wt Last Vital Signs Temp 98.1 F 09/11/25 11:41 Pulse 75 09/11/25 11:41 Resp 17 09/11/25 11:41 BP 112/60 09/11/25 11:41 Pulse Ox 100 09/11/25 11:41 O2 Del Method Room Air 09/11/25 04:00 09/10/25 09/11/25 09/11/25 22:59 06:59 14:59 Intake Total 240 / 240 Balance 240 / 240 Weight last 48 hrs Weight 90.718 kg Weight 90.718 kg Physical Exam 2 Const: COMMON NORMALS: patient oriented x3 and alert GENERAL APPEARANCE: c ooperative ORIENTATION/CONSCIOUSNESS: Yes awake HENMT: COMMON NORMALS: oropharynx normal Neck/C-Spine: COMMON NORMALS: no JVD Resp: COMMON NORMALS: normal respiratory effort and clear to auscultation bilaterally AUSCULTATION: clear to auscultation bilaterally Cardio: COMMON NORMALS: no JVD, regular rhythm, S1 normal heart sound present, S2 normal heart sound present and No murmurs present (Cardio) RHYTHM: regular rhythm HEART SOUNDS: S1 normal heart sound present and S2 normal heart sound present GI: COMMON NORMALS: Normal to inspection, nondistended, normoactive bowel sounds present, Soft to palpation and non-tender PALPATION: Yes Soft to palpation Extremity: COMMON NORMALS: no joint enlargement and no pedal edema N ARRATIVE EXTREMITY EXAM: Left shoulder without erythema, induration or swelling, or tenderness on palpation. Neuro: COMMON NORMALS: patient oriented x3 and moves all extremities S ENSORIUM/ORIENTATION: Yes alert Skin: COMMON NORMALS: no rashes or lesions noted GENERAL SKIN EXAM: no rashes or lesions noted Data 09/11/25 05:01 A&P Assessment and plan 1. Effusion of glenohumeral joint of left upper extremity: Plan: # Ground level fall with loss of mobility. Difficulty with ambulation at baseline. Walker had a broken wheel and she tried to walk with a cane at which point she fell down. PT assessment today. Functional decline, loss of ability to ambulate, physical deconditioning: With a fall, right hip pain, morbid obesity, as well as subluxation of the left shoulder, difficulty with ambulation requiring assistance to ambulate. PT evaluation today. Would benefit from further rehabilitation at senior care. Discussed with returned case inspector, will be working with her regarding arrangements. # Right hip pain: Continue pain control. Reviewed ED provider note, pelvis CT. CT pelvis with no acute fracture or dislocation - pain control, supportive care - consult PT # Large glenohumeral joint effusion with anterior inferior subluxation of the glenohumeral joint. (left extremity). Reviewed CT shoulder. Discussed with ED provider who also discussed findings with orthopedic surgeon. - consult care management for placement unable to care for self in lieu of injuries - obtain baseline labs CBC, CMP - neuro vascular checks - rest, ice, elevate # HTN: Reviewed blood pressures. Hold ibuprofen. Resumed on clonidine to prevent rebound hypertension. Resumed on spironolactone. 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 # Hypothyroidism - Has been resumed on home thyroid medications (levothyroxine and liothyronine) # BLE edema, chronic # Alpha Gal - Heparin and Lovenox deferred , placed on Arixtra instead for VTE ppx Mild CKD - Chemistry reviewed, BUN 10, creatinine 1.2. Electrolytes okay. Caution with NSAIDs. PDMP PDMP Reviewed: Not Reviewed Attestations 2 Medical Necessity Statement*: Continue hospitalization for further assessment and mobilization with loss of ability to ambulate, functional decline, physical deconditioning in a lady with underlying morbid obesity, with chronic subluxation of the left shoulder, fall and injury with pain of right hip, with unstable gait. Post discharge planning and arrangements. and High MDM includes amount and/or complexity of data reviewed/ordered [ previous or external records, resulted lab(s)/test(s) and other healthcare professional discussion] as documented Diagnoses Effusion of glenohumeral joint of left upper extremity M25.412
[2025-09-12] VITALS (7 sets, daily range): BP systolic 109–136; BP diastolic 64–86; PULSE 62–99; RESP 16–19; TEMP 36.2–36.6; O2SAT 90–100
--- NOTE | 2025-09-12 16:10 | P.PN_ITS ---
Subjective 2 Subjective: She reports right hip has not had any pain. Is having pain in the left hip. Vitals/I&O/Wt Last Vital Signs Temp 97.5 F L 09/12/25 15:52 Pulse 70 09/12/25 15:52 Resp 18 09/12/25 15:52 BP 126/68 09/12/25 15:52 Pulse Ox 99 09/12/25 15:52 O2 Del Method Room Air 09/12/25 15:52 Weight last 48 hrs Weight 92.533 kg Weight 90.718 kg Physical Exam 2 Const: COMMON NORMALS: patient oriented x3 and alert GENERAL APPEARANCE: c ooperative ORIENTATION/CONSCIOUSNESS: Yes awake HENMT: COMMON NORMALS: oropharynx normal Neck/C-Spine: COMMON NORMALS: no JVD Resp: COMMON NORMALS: normal respiratory effort and clear to auscultation bilaterally AUSCULTATION: clear to auscultation bilaterally Cardio: COMMON NORMALS: no JVD, regular rhythm, S1 normal heart sound present, S2 normal heart sound present and No murmurs present (Cardio) RHYTHM: regular rhythm HEART SOUNDS: S1 normal heart sound present and S2 normal heart sound present GI: COMMON NORMALS: Normal to inspection, nondistended, normoactive bowel sounds present, Soft to palpation and non-tender PALPATION: Yes Soft to palpation Extremity: COMMON NORMALS: no joint enlargement and no pedal edema N ARRATIVE EXTREMITY EXAM: Left shoulder without erythema, induration or swelling, or tenderness on palpation. Neuro: COMMON NORMALS: patient oriented x3 and moves all extremities S ENSORIUM/ORIENTATION: Yes alert Skin: COMMON NORMALS: no rashes or lesions noted GENERAL SKIN EXAM: no rashes or lesions noted Data 09/11/25 05:01 A&P Assessment and plan 1. Effusion of glenohumeral joint of left upper extremity: Plan: # Ground level fall with loss of mobility. Difficulty with ambulation at baseline. Walker had a broken wheel and she tried to walk with a cane at which point she fell down. PT assessment today. Has continued having pain in the left hip, reviewed CT pelvis, left hip not explicitly mentioned, reaching out back to [facility] to further review focus on the left hip for any fracture. Functional decline, loss of ability to ambulate, physical deconditioning: With a fall, right hip pain, morbid obesity, as well as subluxation of the left shoulder, difficulty with ambulation requiring assistance to ambulate. PT evaluation today. Would benefit from further rehabilitation at custodial. Discussed with case technician, will be working with her regarding arrangements. # Right hip pain: Continue pain control. Reviewed ED provider note, pelvis CT. Reassess CT pelvis with focus on left hip for any fracture given pain in the left hip. CT pelvis with no acute fracture or dislocation - pain control, supportive care - Discussed with PT, discussed with case technician, pending approval for SNF rehabilitation # Large glenohumeral joint effusion with anterior inferior subluxation of the glenohumeral joint. (left extremity). Reviewed CT shoulder. Discussed with ED provider who also discussed findings with orthopedic surgeon. - consult care management for placement unable to care for self in lieu of injuries - obtain baseline labs CBC, CMP - neuro vascular checks - rest, ice, elevate # HTN: Reviewed blood pressures, currently at goal. Reviewed blood pressures. Hold ibuprofen. Resumed on clonidine to prevent rebound hypertension. Resumed on spironolactone. SBP and DBP with elevated trend combination of pain vs sub-optimal med adherence (didn't take BP med today) - Resume home BP meds: clonidine 0.2 mg daily # DM 2T: With hyperglycemia this afternoon, but otherwise glucose 100-160 for the most part. 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 # Hypothyroidism - Has been resumed on home thyroid medications (levothyroxine and liothyronine) # BLE edema, chronic # Alpha Gal - Heparin and Lovenox deferred , placed on Arixtra instead for VTE ppx Resume bupropion. Mild CKD - Chemistry reviewed, BUN 10, creatinine 1.2. Electrolytes okay. Caution with NSAIDs. PDMP PDMP Reviewed: Not Reviewed Attestations 2 Medical Necessity Statement*: Continue hospitalization for further assessment and mobilization with loss of ability to ambulate, functional decline, physical deconditioning in a lady with underlying morbid obesity, with chronic subluxation of the left shoulder, fall and injury with pain of right hip, with unstable gait. Post discharge planning and arrangements. Diagnoses Effusion of glenohumeral joint of left upper extremity M25.055
[2025-09-13 04:00] VITALS: BP 115/68; PULSE 78; RESP 16; TEMP 36.7
[2025-09-13 04:45] VITALS: BP 115/68
[2025-09-13 07:15] VITALS: BP 131/84; PULSE 69; RESP 18; TEMP 36.3; O2SAT 98
[2025-09-13 11:11] VITALS: BP 134/83; PULSE 80; RESP 19; TEMP 36.4; O2SAT 98
[2025-09-13 15:21] VITALS: BP 134/83; PULSE 80; RESP 19; TEMP 36.4; O2SAT 98
--- NOTE | 2025-09-13 20:42 | P.DS_ITS ---
Discharge Providers Date of Admission: 09/10/25 16:06 Date of Discharge: September 13, 2025 Attending Provider at Admission: Jason John Attending Provider at Discharge: Jason John Primary Care Provider: Whit Alvarado, CASKET ASSEMBLER [employer] Diagnoses at Discharge Discharge Diagnosis 1. Effusion of glenohumeral joint of left upper extremity: Reason for Visit Reason for Visit: right hip pain s/p fall Brief History: Joan Gold is a 75 year old female with PMHx of HTN, HF, chronic LE edema, DM 2T, obesity, alpha gal, hypothyroidism and anxiety / depression.Patient presented to the ED on 09/10/2025 after a mechanical fall. Today was using cane for ambulation, lost balance and fell with impact to right hip. Denies injury to the head. She was unable to get up. Experienced pain immediately. Niece, who was in the house, summoned EMS. Ambulates with walker at baseline. Currently complaining of right hip pain and left shoulder pain. Denies numbness, tingling and loss of sensation. Imaging done in ED revealed large glenohumeral joint effusion (left upper extremity) XR shoulder Anterior subluxation of the glenohumeral joint with surrounding soft swelling. Findings concerning for fracture of the posterior aspect of the humeral head. CT Left Upper Extremity 1. No acute fracture. 2. Large glenohumeral joint effusion w ith anterior inferior subluxation of the glenohumeral joint. 3. Findings of chronic rotator cuff te ar with severe atrophy of the supraspinatus and infraspinatus muscles. Hospital Course Hospital Course CT left shoulder without dislocation, finding of effusion, with chronic problem, without erythema, swelling, redness, localized tenderness, without sign of infection. She has been having chronic issues with the shoulder. She continue with pain management, mobilization with gradual improvement in pain in the right hip. Residual pain in the left hip, CT pelvis further reviewed with regards to left hip, without noted fracture. Pain has been improving. However, in case of worsening or lack of resolution, consider further imaging with MRI. With significant deconditioning would benefit from further rehabilitation and strengthening and work on her balance. Reinforced with her to make sure she is always using a walker. Physical Exam Const: COMMON NORMALS: patient oriented x3 and alert GENERAL APPEARANCE: cooperative ORIENTATION/CONSCIOUSNESS: Yes awake HENMT: COMMON NORMALS: oropharynx normal Neck/C-Spine: COMMON NORMALS: no JVD Resp: COMMON NORMALS: normal respiratory effort and clear to auscultation bilaterally AUSCULTATION: clear to auscultation bilaterally Cardio: COMMON NORMALS: no JVD, regular rhythm, S1 normal heart sound present, S2 normal heart sound present and No murmurs present (Cardio) RHYTHM: regular rhythm HEART SOUNDS: S1 normal heart sound present and S2 normal heart sound present GI: COMMON NORMALS: Normal to inspection, nondistended, normoactive bowel sounds present, Soft to palpation and non-tender PALPATION: Yes Soft to palpation Extremity: COMMON NORMALS: no joint enlargement and no pedal edema NARRATIVE EXTREMITY EXAM: Left shoulder without erythema, induration or swelling, or tenderness on palpation. Neuro: COMMON NORMALS: patient oriented x3 and moves all extremities SENSORIUM/ORIENTATION: Yes alert Skin: COMMON NORMALS: no rashes or lesions noted GENERAL SKIN EXAM: no rashes or lesions noted Discharge Data Studies Completed and Pending Completed Studies During Hospitalization Category Date Time Status CT pelvis wo con [id number] Stat Cat Scan 09/10/25 13:[address] shoulder LT wo con* [id number] Stat Cat Scan 09/10/25 15:31 Completed XR chest 1V portable [id number] Stat Exams 09/10/25 11:41 Completed XR hip RT 2-3V wo/w pel* [id number] Stat Exams 09/10/25 11:41 Completed XR shoulder LT min 2V* [id number] Stat Exams 09/10/25 14:36 Completed Radiology Impressions Chest X-Ray 09/10/25 11:41 IMPRESSION: 1. No acute cardiopulmonary process. 2. Cardiomegaly. Hip/Pelvis X-Ray 09/10/25 11:41 IMPRESSION: No acute fracture or dislocation. Pelvis CT 09/10/25 13:36 IMPRESSION: 1. No acute fracture or dislocation. 2. Mild constipation. ADDENDUM: 09/12/25 1705 No fracture or dislocation is seen about either hip. No fracture or diastasis is seen about the pelvis. If hip pain persists, consider MRI to further evaluate. Shoulder X-Ray 09/10/25 14:36 IMPRESSION: Anterior subluxation of the glenohumeral joint with surrounding soft swelling. Findings concerning for fracture of the posterior aspect of the humeral head. Shoulder CT 09/10/25 15:31 IMPRESSION: 1. No acute fracture. 2. Large glenohumeral joint effusion with anterior inferior subluxation of the glenohumeral joint. 3. Findings of chronic rotator cuff tear with severe atrophy of the supraspinatus and infraspinatus muscles. Laboratory Results Sodium 138 mmol/L (136-145) 09/11/25 05:01 Potassium 3.8 mmol/L (3.5-5.1) 09/11/25 05:01 Chloride 106 mmol/L (98-107) 09/11/25 05:01 Carbon Dioxide 23 mmol/L (22-29) 09/11/25 05:01 Anion Gap 12.8 (5-19) 09/11/25 05:01 BUN 10 mg/dL (8-23) 09/11/25 05:01 Creatinine 1.2 mg/dL (0.5-0.9) H 09/11/25 05:01 GFR Calculation Not Reportable 09/11/25 05:01 Glucose 117 mg/dL (65-115) H 09/11/25 05:01 POC Glucose 95 mg/dL (70-110) 09/13/25 11:00 Calculated Osmolality 286 mOsm/kg (285-295) 09/11/25 05:01 Calcium 8.0 mg/dL (8.5-10.5) L 09/11/25 05:01 Total Bilirubin 0.5 mg/dL (0.15-1.2) 09/11/25 05:01 AST 24 U/L (0-32) 09/11/25 05:01 ALT 12 U/L (0-33) 09/11/25 05:01 Alkaline Phosphatase 55 U/L (35-105) 09/11/25 05:01 Total Protein 5.4 g/dL (6.6-8.7) L 09/11/25 05:01 Albumin 3.0 g/dL (3.5-5.2) L 09/11/25 05:01 Globulin 2.4 g/dL (1.3-4.6) 09/11/25 05:01 Vitals Last Vital Signs Temp 97.5 F L 09/13/25 15:21 Pulse 80 09/13/25 15:21 Resp 19 H 11/26/25 15:21 BP 134/83 09/13/25 15:21 Pulse Ox 98 09/13/25 15:21 O2 Del Method Room Air 09/13/25 11:11 Discharge Plan Discharge Patient Disposition: Xfer SNF Condition: Stable Prescriptions: Continued metformin 500 mg tablet 500 mg PO BID cetirizine [All Day Allergy (cetirizine)] 10 mg tablet 10 mg PO DAILY PRN (Reason: Itching) clonidine HCl 0.2 mg tablet 0.2 mg PO DAILY epinephrine 0.3 mg/0.3 mL auto-injector 0.3 mg IM Q10M PRN (Reason: Allergic Reaction) Rx Instructions: for 2 doses levothyroxine [Synthroid] 150 mcg tablet 150 mcg PO DAILY bupropion HCl [Wellbutrin XL] 300 mg tablet extended release 24 hr 300 mg PO QAM Qty: 30 2RF spironolactone 25 mg tablet 25 mg PO DAILY vitamin D3-vitamin K2 1,250-200 mcg Capsule 1 cap PO DAILY liothyronine 5 mcg tablet 5 mcg PO DAILY potassium chloride 20 mEq tablet,ER particles/crystals 20 meq PO DAILY Discontinued ibuprofen [Advil] 200 mg Tablet 200 mg PO Q6H PRN (Reason: Fever Or Pain) Discharge Order = DC NOW: Discharge Order (Routine); Ordered 09/13/25 Ordered By: Jason John Referrals: [facility] [Outside] Alvarado,KP Sherman [Primary Care Provider, Nurse Practitioner] - 4-7 days Discharge Diet: Cardiac and Diabetic Discharge Activity: As per PT/OT instructions Patient Instructions: Opioid Safety, Pain Management, Patient Portal & Leila Instructions Activity Restrictions/Additional Instructions: If her left hip pain stops improving or worsens, please speak with your doctor to further arrange imaging with MRI. Maintain strict fall precautions. Use your walker at all times. Follow-up with your primary doctor regarding chronic left shoulder subluxation. Continue to monitor blood pressures, target blood pressure is 120/80 long-term. Continue to optimize blood glucose control with your primary provider. Avoid NSAIDs like ibuprofen, Aleve, etc. if possible due to mild chronic kidney disease. Discharge Attestations Time Spent in Discharge Care*: greater than 30 min Quality Metrics Clinical Quality Measures [ No reported AMI, CVA or VTE this stay] Coding Level of Care Code 85934 Total time (in minutes) for Discharge: 35 Diagnoses Effusion of glenohumeral joint of left upper extremity M25.565
== END 2025-09-13 14:55 | disposition skilled nursing facility (03) ==
LOC: ER 16:46 → MEDSURG 17:28
PROVIDERS: Nurse Practitioner Gerontology; Admitting Provider Internal Medicine; Emergency Provider Emergency Medicine; PCP Nurse Practitioner Family; Visit Provider Internal Medicine
DX: M25.412 Effusion, left shoulder (principal); E11.22 Type 2 diabetes mellitus with diabetic chronic kidney disease; I13.0 Hypertensive heart and chronic kidney disease with heart failure and stage 1 through stage 4 chronic kidney disease, or unspecified chronic kidney disease; N18.9 Chronic kidney disease, unspecified; I50.9 Heart failure, unspecified; Z79.84 Long term (current) use of oral hypoglycemic drugs; E66.9 Obesity, unspecified; Z68.37 Body mass index [BMI] 37.0-37.9, adult; Z91.014 Allergy to mammalian meats; E03.9 Hypothyroidism, unspecified; F41.8 Other specified anxiety disorders; R60.9 Edema, unspecified; F17.200 Nicotine dependence, unspecified, uncomplicated
CPT/HCPCS: 36415; 36416; 71045; 72192; 73030; 73200; 73502; 80053; 82962; 96372; 97116; 97161; 97165; 97530; 97535; 99285; G0378; J1652; J1815; J9999